=== PATIENT | male | born 1955 | race Caucasian/White ===

== ENCOUNTER → 2017-06-20 | Outpatient (CLI) | payer BC | END | disposition home or self-care (01) | LOC: LABWHC1 15:09 | PROVIDERS: ATTEND Otolaryngology | DX: J30.89 Other allergic rhinitis (principal) | CPT/HCPCS: 36415 ==

== ENCOUNTER 2019-01-01 17:38 | Observation (INO) | payer BC, MEDICARE, OTHER ==
[2019-01-01] MEDS ORDERED: SODIUM CHLORIDE 0.9% 1,000 ML IV STA (17:56)
[2019-01-01] MEDS ORDERED: SODIUM CHLORIDE 0.9% 500 ML 500 ML IV STA (17:56)
[2019-01-01 18:13] LABS: Basophils # (A) 0.1 k/uL (0-0.2); Basophils % (A) 1 %; Eosinophils # (A) 0.2 k/uL (0-0.7); Eosinophils % (A) 2 %; HCT 44.9 % (39.0-53.0); HGB 15.5 gm/dL (13.0-17.5); Lymphocytes # (A) 2.5 k/uL (1.0-4.8); Lymphocytes % (A) 28 %; MCH 30.9 pg (25.0-35.0); MCHC 34.5 g/dL (31.0-37.0); MCV 89.5 fL (80.0-100.0); Mean Platelet Volume 7.9; Monocytes # (A) 0.6 k/uL (0-1.0); Monocytes % (A) 6 %; Neutrophils # (A) 5.5 k/uL (1.3-7.7); Neutrophils % (A) 61 %; Platelet Count 247 k/uL (150-450); RBC 5.02 m/uL (4.30-5.90); RDW 13.3 % (11.5-15.5)
[2019-01-01 18:23] LABS: Albumin 4.5 g/dL (3.5-5.0); Calcium 9.6 mg/dL (8.4-10.2); Potassium 4.5 mmol/L (3.5-5.1); Total Bilirubin 0.6 mg/dL (0.2-1.3); Total Protein 7.6 g/dL (6.3-8.2)
[2019-01-01 18:25] LABS: INR 0.9 (<1.2); Partial Thromboplastin Time 23.9 sec (22.0-30.0); Prothrombin Time 10.1 sec (9.0-12.0)
--- NOTE | 2019-01-01 18:25 | ED ---
Arrhythmia/Palpitations HPI - General Chief Complaint: Arrhythmia/Palpitations Stated Complaint: Abnormal EKG Time Seen by Provider: 01/01/19 17:55 Source: patient, RN notes reviewed, old records reviewed Mode of arrival: wheelchair Limitations: no limitations - History of Present Illness Initial Comments: This is a 63-year-old male the ER for evaluation. Patient admits today for evaluation of left-sided chest pain left shoulder pain history of positive heart catheterization abnormal stress testing coming in for new change in EKG. Patient was sent in the ER by PCP for evaluation. Patient continued of pain. No source of breath no travel history no sick contacts, patient does take aspirin every other day -: days(s) Context: occurred during rest Associated Symptoms: chest pain, other (Left shoulder pain) - Related Data Home Medications Medication Instructions Recorded Confirmed Brimonidine Tartrate [Alphagan P 1 drops BOTH EYES BID 06/16/14 07/10/15 0.1% Ophth Soln] Dorzolamide HCl/Timolol Maleat 1 drop LEFT EYE BID 06/16/14 07/10/15 [Cosopt Eye Drops] Insulin Glargine [Lantus] 55 unit SQ DAILY 06/16/14 07/10/15 Latanoprost Ophth [Xalatan 0.005%] 1 drops BOTH EYES DAILY 06/16/14 07/10/15 metFORMIN HCL [Glucophage] 1,000 mg PO BID 06/16/14 07/10/15 Aspirin 81 mg PO DAILY 10/20/14 07/10/15 Cholecalciferol [Vitamin D3] 1,000 unit PO Q48H 10/20/14 07/10/15 Flaxseed [Flaxseed Oil] 1,000 mg PO BID 10/20/14 07/10/15 Losartan/Hydrochlorothiazide 1 each PO DAILY 07/10/15 07/10/15 [Hyzaar 100-12.5 Tablet] buPROPion SR [Wellbutrin Sr] 100 mg PO BID 07/10/15 07/10/15 Previous Rx's Medication Instructions Recorded Acetaminophen with Codeine 1 tab PO Q4H PRN #20 tab 07/10/15 [Tylenol w/codeine #3] Albuterol Sulfate [Proair Hfa] 1 - 2 puff INHALATION Q4H PRN #1 07/10/15 inhaler Levofloxacin [Levaquin] 750 mg PO DAILY #7 tab 07/10/15 Allergies Allergy/AdvReac Type Severity Reaction Status Date / Time No Known Allergies Allergy Verified 01/01/19 17:41 Review of Systems ROS Statement: Those systems with pertinent positive or pertinent negative responses have been documented in the HPI. ROS Other: All systems not noted in ROS Statement are negative. Past Medical History Past Medical History: Diabetes Mellitus, Eye Disorder, GERD/Reflux, Hypertension, Sleep Apnea/CPAP/BIPAP Additional Past Medical History / Comment(s): glaucoma, past hx. colon polyps History of Any Multi-Drug Resistant Organisms: None Reported Past Surgical History: Heart Catheterization Additional Past Surgical History / Comment(s): colonoscopies, vocal cord polyp removed, pilonidal cyst removed Past Anesthesia/Blood Transfusion Reactions: No Reported Reaction Past Psychological History: No Psychological Hx Reported Smoking Status: Former smoker Past Alcohol Use History: Occasional Past Drug Use History: None Reported General Exam Limitations: no limitations General appearance: alert, in no apparent distress Head exam: Present: atraumatic, normocephalic, normal inspection Eye exam: Present: normal appearance, PERRL, EOMI. Absent: scleral icterus, conjunctival injection, periorbital swelling ENT exam: Present: normal exam, mucous membranes moist Neck exam: Present: normal inspection. Absent: tenderness, meningismus, lymphad enopathy Respiratory exam: Present: normal lung sounds bilaterally. Absent: respiratory distress, wheezes, rales, rhonchi, stridor Cardiovascular Exam: Present: regular rate, normal rhythm, normal heart sounds. Absent: systolic murmur, diastolic murmur, rubs, gallop, clicks GI/Abdominal exam: Present: soft, normal bowel sounds. Absent: distended, tenderness, guarding, rebound, rigid Extremities exam: Present: normal inspection, full ROM, normal capillary refill. Absent: tenderness, pedal edema, joint swelling, calf tenderness Back exam: Present: normal inspection Neurological exam: Present: alert, oriented X3, CN II-XII intact Psychiatric exam: Present: normal affect, normal mood Skin exam: Present: warm, dry, intact, normal color. Absent: rash Course Vital Signs 01/01/19 17:39 Temperature 98.2 F Pulse Rate 76 Respiratory 20 Rate Blood Pressure 149/90 O2 Sat by Pulse 98 Oximetry - Reevaluation(s) Reevaluation #1: 01/01/19 18:38 Medical record outpatient EKG reviewed Reevaluation #2: 01/01/19 18:38 Patient's left shoulder pain left chest pain EKG Findings - EKG Comments: EKG Findings:: EKG shows sinus rhythm rate of 70, IL 150, QRS 150, QTc 487 Medical Decision Making - Medical Decision Making 63 male the ER for evaluation. Patient left-sided shoulder pain with history of heart disease, will not for cardiac observation - Lab Data Result diagrams: 01/01/19 17:53 01/01/19 17:53 Lab Results 01/01/19 01/01/19 01/01/19 Range/Units 17:53 17:53 17:53 WBC 9.0 (3.8-10.6) k/uL RBC 5.02 (4.30-5.90) m/uL Hgb 15.5 (13.0-17.5) gm/dL Hct 44.9 (39.0-53.0) % MCV 89.5 (80.0-100.0) fL MCH 30.9 (25.0-35.0) pg MCHC 34.5 (31.0-37.0) g/dL RDW 13.3 (11.5-15.5) % Plt Count 247 (150-450) k/uL Neutrophils % 61 % Lymphocytes % 28 % Monocytes % 6 % Eosinophils % 2 % Basophils % 1 % Neutrophils # 5.5 (1.3-7.7) k/uL Lymphocytes # 2.5 (1.0-4.8) k/uL Monocytes # 0.6 (0-1.0) k/uL Eosinophils # 0.2 (0-0.7) k/uL Basophils # 0.1 (0-0.2) k/uL PT 10.1 (9.0-12.0) sec INR 0.9 (<1.2) APTT 23.9 (22.0-30.0) sec Sodium 139 (137-145) mmol/L Potassium 4.5 (3.5-5.1) mmol/L Chloride 102 (98-107) mmol/L Carbon Dioxide 27 (22-30) mmol/L Anion Gap 10 mmol/L BUN 28 H (9-20) mg/dL Creatinine 1.20 (0.66-1.25) mg/dL Est GFR (CKD-EPI)AfAm 73 (>60 ml/min/1.73 sqM) Est GFR (CKD-EPI)NonAf 63 (>60 ml/min/1.73 sqM) Glucose 150 H (74-99) mg/dL Calcium 9.6 (8.4-10.2) mg/dL Magnesium 2.0 (1.6-2.3) mg/dL Total Bilirubin 0.6 (0.2-1.3) mg/dL AST 28 (17-59) U/L ALT 22 (21-72) U/L Alkaline Phosphatase 58 (38-126) U/L Total Protein 7.6 (6.3-8.2) g/dL Albumin 4.5 (3.5-5.0) g/dL Lipase 473 H (23-300) U/L - Radiology Data Radiology results: report reviewed (Chest x-rays negative for acute disease), image reviewed Disposition Clinical Impression: Chest pain Disposition: HOME SELF-CARE Condition: Undetermined Is patient prescribed a controlled substance at d/c from ED?: No Referrals: Lazaro Holley MD [Primary Care Provider] - 1-2 days
[2019-01-01] MEDS ORDERED: HEPARIN SODIUM,PORCINE 5,000 UNIT/ML 1 ML VIAL IV ONE (18:35)
[2019-01-01] MEDS ORDERED: NITROGLYCERIN SL TABS 0.4 MG TAB SUBLINGUAL PRN (18:35)
[2019-01-01] MEDS ORDERED: HEPARIN SODIUM,PORCINE 5,000 UNIT/ML 1 ML VIAL IV PRN (18:35)
[2019-01-01] MEDS ORDERED: MORPHINE SULFATE 4 MG/ML SYRINGE IV PRN (18:35)
--- NOTE | 2019-01-01 18:41 | XR ---
EXAMINATION TYPE: XR chest 2V DATE OF EXAM: 01/01/2019 COMPARISON: 07/10/2015 HISTORY: Chest pain TECHNIQUE: Frontal and lateral views of the chest are obtained. FINDINGS: Heart and mediastinum are normal. Lungs are clear. Diaphragm is normal. There is spurring in the thoracic spine. There are chest leads. IMPRESSION: No active cardiopulmonary disease. No change.
[2019-01-01] MEDS ORDERED: HEPARIN SOD,PORK IN 0.45% NACL 25,000 UNIT in 0.45% NACL 1 250ML.BAG IV SCH (18:45)
--- NOTE | 2019-01-01 21:53 | P.HPIM ---
History of Present Illness H&P Date: 01/01/19 Patient is a 63-year-old male with a PMH of hypertension, hyperlipidemia, and diabetes mellitus who presented to the ED with complaints of left shoulder pain. The patient notes that over the past few weeks, he has developed an aching pain in the left shoulder, brought on by activity as well as occasionally at rest. He is unable to quantify the exact intensity of the pain as it varies significantly, and denied any associated symptoms. He denied shortness of breath, nausea, vomiting, or diaphoresis. He notes excellent exercise tolerance and is able to climb stairs and go up hills without difficulty. The patient previously had an abnormal stress test and subsequent cardiac catheterization in 2014 which revealed a 40-50% stenosis of the mid right coronary artery. The patient otherwise denied fever, chills, cough, headaches, dizziness, or diarrhea. He underwent an extensive evaluation in the ED with troponin less than 0.012, BNP 61, sodium 139, potassium 4.5, WBC count 9, hemoglobin 15, place 247, BUN 28, and creatinine 1.20. Patient's EKG revealed a normal sinus rhythm at 78 bpm with a right bundle sil block, also seen previously on EKG from 2016. Patient was admitted to the medicine service for cardiology evaluation. Review of Systems Pertinent positives and negatives as discussed in HPI, a complete review of systems was performed and all other systems are negative. Past Medical History Past Medical History: Diabetes Mellitus, Eye Disorder, GERD/Reflux, Hypertension, Sleep Apnea/CPAP/BIPAP Additional Past Medical History / Comment(s): glaucoma, past hx. colon polyps History of Any Multi-Drug Resistant Organisms: None Reported Past Surgical History: Heart Catheterization Additional Past Surgical History / Comment(s): colonoscopies, vocal cord polyp removed, pilonidal cyst removed Past Anesthesia/Blood Transfusion Reactions: No Reported Reaction Past Psychological History: No Psychological Hx Reported Smoking Status: Former smoker Past Alcohol Use History: Occasional Past Drug Use History: None Reported Medications and Allergies Home Medications Medication Instructions Recorded Confirmed Type Brimonidine Tartrate [Alphagan P 1 drops LEFT EYE BID 06/16/14 01/01/19 History 0.1% Ophth Soln] Dorzolamide HCl/Timolol Maleat 1 drop LEFT EYE BID 06/16/14 07/10/15 History [Cosopt Eye Drops] Latanoprost Ophth [Xalatan 0.005%] 1 drops LEFT EYE DAILY 06/16/14 01/01/19 History Aspirin 81 mg PO Q48H 10/20/14 01/01/19 History Cholecalciferol [Vitamin D3] 2,000 unit PO DAILY 10/20/14 01/01/19 History Flaxseed [Flaxseed Oil] 1,000 mg PO DAILY 10/20/14 01/01/19 History Losartan/Hydrochlorothiazide 1 tab PO DAILY 07/10/15 01/01/19 History [Hyzaar 100-12.5 Tablet] Ascorbic Acid [Vitamin C] 500 mg PO DAILY 01/01/19 01/01/19 History Calcium Carbonate [Calcium] 600 mg PO DAILY 01/01/19 01/01/19 History Cyanocobalamin (Vitamin B-12) 1,000 mcg PO DAILY 01/01/19 01/01/19 History [Vitamin B-12] Multivitamins, Thera [Multivitamin 1 tab PO DAILY 01/01/19 01/01/19 History (formulary)] Turmeric Root Extract [Turmeric] 500 mg PO DAILY 01/01/19 01/01/19 History Allergies Allergy/AdvReac Type Severity Reaction Status Date / Time apple Allergy Unknown Verified 01/01/19 19:24 broccoli Allergy Unknown Verified 01/01/19 19:24 cat dander Allergy Unknown Verified 01/01/19 19:24 Milk Containing Products Allergy Unknown Verified 01/01/19 19:24 [Dairy] wheat Allergy Unknown Verified 01/01/19 19:24 codeine AdvReac AGITATION Verified 01/01/19 20:03 Physical Exam Vitals: Vital Signs Temp Pulse Resp BP Pulse Ox 01/01/19 20:13 81 16 144/88 97 01/01/19 17:39 98.2 F 76 20 149/90 98 Intake and Output 01/01/19 01/01/19 01/01/19 06:59 14:59 22:59 Other: Weight 103.873 kg General: non toxic, no distress, appears at stated age, normal weight Derm: no unusual rashes/lesions no unusual ecchymoses, warm, dry Head: atraumatic, normocephalic, symmetric Eyes: EOMI, no lid lag, anicteric sclera, pupils equal round reactive to light ENT: Nose and ears atraumatic, no thrush, no pharyngeal erythema Neck: No thyromegaly, no cervical lymphadenopathy, trachea midline, supple Mouth: no lip lesion, mucus membranes moist Cardiovascular: S1S2 reg, no murmur, positive posterior tibial pulse bilateral, no edema, capillary refill less than 2 seconds Lungs: CTA bilateral, no rhonchi, no rales , no accessory muscle use Abdominal: soft, nontender to palpation, no guarding, no appreciable organomegaly, normal bowel sounds Ext: Left shoulder with tenderness over multiple areas, normal range of motion, no gross muscle atrophy, muscle strength 5 out of 5 in all 4 extremities grossly, no contractures Neuro: CN II-XI grossly intact, light touch intact all 4 extremities, finger to nose within normal limits, Psych: Alert, oriented, appropriate affect Results CBC & Chem 7: 01/01/19 17:53 01/01/19 17:53 Labs: Abnormal Lab Results - Last 24 Hours (Table) 01/01/19 Range/Units 17:53 BUN 28 H (9-20) mg/dL Glucose 150 H (74-99) mg/dL Lipase 473 H (23-300) U/L Assessment and Plan Plan: Left shoulder pain, likely musculoskeletal in origin, though in light of multiple comorbidities, admitted for rule out ACS -Discontinue heparin infusion -Continue with aspirin and Lipitor -Cardiology consulted -Cardiac monitoring -Trend troponin Chronic conditions: Hypertension, hyperkalemia, diabetes mellitus (diet controlled) -Continue with home meds DVT prophylaxis -Heparin subq The patient is admitted with an anticipated less than 2 midnight stay for evaluation of L shoulder pain. CODE STATUS:Full Code Discussed with: Patient Anticipated discharge date: 01/02/[address]: Home A total of 30 minutes was spent on the care of this complex patient more than 50% of the time was spent in counseling and care coordination
[2019-01-01 22:14] VITALS: BMI 32.8
[2019-01-01 22:47] LABS: Glucose,Whole Blood 128 mg/dL (75-99)
[2019-01-01] MEDS: METOPROLOL TARTRATE 25 MG TAB PO SCH (22:54)
[2019-01-02] MEDS: BRIMONIDINE TARTRATE 0.2% DROPS 5 ML BTL LEFT EYE SCH ×2 (02:23→12:50)
[2019-01-02] MEDS: DORZOLAMIDE-TIMOLOL 2.23%/0.68 10ML BTL LEFT EYE SCH ×2 (02:24→12:50)
[2019-01-02 05:58] LABS: Mean Platelet Volume 8.5; Platelet Count 222 k/uL (150-450)
[2019-01-02 06:04] LABS: Cholesterol 132 mg/dL (<200); HDL Cholesterol 38 mg/dL (40-60); LDL Cholesterol,Calculated 62 mg/dL (0-99); Triglycerides 159 mg/dL (<150)
[2019-01-02 07:20] LABS: Glucose,Whole Blood 138 mg/dL (75-99)
[2019-01-02] MEDS: INSULIN ASPART (NovoLOG) 100 UNIT/ML VIAL SQ SCH ×2 (07:34→12:50)
[2019-01-02 08:32] VITALS: RESP 17; TEMP 97.5
[2019-01-02] MEDS ORDERED: DOBUTamine DRIP for NUC MED 500 MG in DEXTROSE/WATER 1 250ML.BAG IV ONE (08:48)
[2019-01-02] MEDS ORDERED: LATANOPROST 0.005% OPHTH DROPS 2.5 ML BTL LEFT EYE SCH (09:00)
[2019-01-02] MEDS ORDERED: ASPIRIN 325 MG TAB PO SCH (09:00)
[2019-01-02] MEDS ORDERED: LOSARTAN 50 MG TAB PO SCH (09:00)
[2019-01-02] MEDS ORDERED: ATORVASTATIN 80 MG TAB PO SCH (09:00)
[2019-01-02] MEDS ORDERED: LOSARTAN-HCTZ 50-12.5 MG 1 EACH TAB PO SCH (09:00)
[2019-01-02 11:25] VITALS: BP 166/98; PULSE 91
[2019-01-02] MEDS: METOPROLOL TARTRATE 25 MG TAB PO SCH (12:50)
--- NOTE | 2019-01-02 13:42 | ECHOS ---
STRESS ECHOCARDIOGRAM DATE OF SERVICE: 01/02/2019 INDICATIONS: Chest pain. MEDICATIONS: BASELINE HEART RATE: 60 BASELINE BLOOD PRESSURE: 125/50 MAXIMUM HEART RATE: 157 MAXIMUM BLOOD PRESSURE: 219/101 85% MPHR: 132 100% MPHR: 155 METS: 8 MAXIMUM STAGE REACHED: III TOTAL EXERCISE TIME: 6-1/2 minutes CLINICAL INFORMATION: Baseline EKG shows sinus rhythm with right bundle branch block. The patient exercised on Yunier protocol for a total of 6-1/2 minutes, achieving 8 METs, 100% of predicted maximal heart rate without chest pain or diagnostic ST-segment depression. Baseline echo shows normal left ventricular size, wall motion and systolic function. Endocardial visualization was enhanced by a contrast agent. Postexercise there is normal hyperdynamic response of all segments of myocardium noted. CONCLUSIONS: 1. Average exercise tolerance. 2. Inconclusive EKG part of the stress test due to baseline EKG abnormalities. 3. Negative stress echo. MMODL / IJN: [id number] /
--- NOTE | 2019-01-02 13:42 | P.DS ---
Providers Date of admission: 01/01/19 18:35 Expected date of discharge: 01/02/19 Attending physician: Tomas Mejia MD Consults: 01/01/19 18:35 Consult Physician Urgent Consulting Provider: Mallika Sánchez Consult Reason/Comments: cp Do you want consulting provider notified?: Yes Primary care physician: [facility] Course: 63-year-old male with a PMH of hypertension, hyperlipidemia, and diabetes mellitus who presented to the ED with complaints of left shoulder pain. The patient notes that over the past few weeks, he has developed an aching pain in the left shoulder, brought on by activity as well as occasionally at rest. The pain varies significantly in intensity. No associated symptoms. No shortness of breath, nausea, vomiting, or diaphoresis. He notes excellent exercise tolerance and is able to climb stairs and go up hills without difficulty. No fever, chills, cough, headaches, dizziness, or diarrhea. The patient previously had an abnormal stress test and subsequent cardiac catheterization in 2014 which revealed a 40-50% stenosis of the mid right coronary artery. He underwent an extensive evaluation in the ED with troponin less than 0.012, BNP 61, sodium 139, potassium 4.5, WBC count 9, hemoglobin 15, place 247, BUN 28, and creatinine 1.20. Patient's EKG revealed a normal sinus rhythm at 78 bpm with a right bundle sil block, also seen previously on EKG from 2016. He was admitted to observation, kept on telemetry. Troponin was trended and it remained negative. Telemetry did not show any changes throughout stay observation. Today he had a dobutamine stress echo and that came back negative for any stress-induced ischemia. He was evaluated by cardiology who cleared him for discharge. He was advised that this pain is most likely musculoskeletal. He will be discharged home in stable condition. Patient Condition at Discharge: Undetermined Plan - Discharge Summary Discharge Rx Participant: No New Discharge Prescriptions: Continue Latanoprost Ophth [Xalatan 0.005%] 1 drops LEFT EYE DAILY Dorzolamide HCl/Timolol Maleat [Cosopt Eye Drops] 1 drop LEFT EYE BID Brimonidine Tartrate [Alphagan P 0.1% Ophth Soln] 1 drops LEFT EYE BID Cholecalciferol [Vitamin D3 (25 Mcg = 1000 Iu)] 2,000 unit PO DAILY Aspirin 81 mg PO Q48H Flaxseed [Flaxseed Oil] 1,000 mg PO DAILY Losartan/Hydrochlorothiazide [Hyzaar 100-12.5 Tablet] 1 tab PO DAILY Multivitamins, Thera [Multivitamin (formulary)] 1 tab PO DAILY Turmeric Root Extract [Turmeric] 500 mg PO DAILY Cyanocobalamin (Vitamin B-12) [Vitamin B-12] 1,000 mcg PO DAILY Ascorbic Acid [Vitamin C] 500 mg PO DAILY Calcium Carbonate [Calcium] 600 mg PO DAILY Discharge Medication List Brimonidine Tartrate [Alphagan P 0.1% Ophth Soln] 1 drops LEFT EYE BID 06/16/14 [History] Dorzolamide HCl/Timolol Maleat [Cosopt Eye Drops] 1 drop LEFT EYE BID 06/16/14 [History] Latanoprost Ophth [Xalatan 0.005%] 1 drops LEFT EYE DAILY 06/16/14 [History] Aspirin 81 mg PO Q48H 10/20/14 [History] Cholecalciferol [Vitamin D3 (25 Mcg = 1000 Iu)] 2,000 unit PO DAILY 10/20/14 [History] Flaxseed [Flaxseed Oil] 1,000 mg PO DAILY 10/20/14 [History] Losartan/Hydrochlorothiazide [Hyzaar 100-12.5 Tablet] 1 tab PO DAILY 07/10/15 [History] Ascorbic Acid [Vitamin C] 500 mg PO DAILY 01/01/19 [History] Calcium Carbonate [Calcium] 600 mg PO DAILY 01/01/19 [History] Cyanocobalamin (Vitamin B-12) [Vitamin B-12] 1,000 mcg PO DAILY 01/01/19 [History] Multivitamins, Thera [Multivitamin (formulary)] 1 tab PO DAILY 01/01/19 [History] Turmeric Root Extract [Turmeric] 500 mg PO DAILY 01/01/19 [History] Follow up Appointment(s)/Referral(s): Lazaro Holley MD [Primary Care Provider] - 1-2 days
--- NOTE | 2019-01-02 14:38 | CONS ---
CONSULTATION CHIEF COMPLAINT: Left shoulder pain. Amor is a 63-year-old gentleman with history of mild coronary artery disease, hypertension, who presented to hospital because of left shoulder pain. 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 It is unassociated with diaphoresis, shortness of breath without clear-cut relieving or exacerbating factors. Sometimes it got worse with movements of the left shoulder. The patient had a cardiac catheterization in 2014 that revealed a lesion in the mid right coronary artery that we have managed with optimal medical therapy. He did not have any further testing since that time. An EKG on this admission revealed right bundle branch block, but his right bundle branch block is chronic and stable. He has had 3 sets of cardiac enzymes that were all within normal limits. Given his unexplained shoulder pain, I advised the patient to undergo a stress test for further evaluation. Understanding all the issues, he wishes to proceed with it today. PAST MEDICAL HISTORY: Significant for sleep apnea, diabetes, GERD, hypertension, CAD. PAST SURGICAL HISTORY: Significant for cardiac catheterization and vocal cord polyp removal. SOCIAL HISTORY: Negative for smoking. There is no history of EtOH abuse or drug abuse. REVIEW OF SYSTEMS: HEENT is unremarkable. CARDIAC: As described above. RESPIRATORY: Negative. GI: Negative. GENITOURINARY: Negative. ALLERGY/IMMUNOLOGY: Negative. SKIN: Negative. MUSCULOSKELETAL: Significant for left shoulder pain. PSYCHOSOCIAL: Negative. DERM: Negative. CONSTITUTIONAL: Negative. ONCOLOGICAL: Negative. Rest of the system review is not relevant. CURRENT MEDICATIONS: Current medications include Xalatan, aspirin, flaxseed, Hyzaar, vitamin C, calcium, B12. ALLERGIES: Allergic to APPLE, BROCCOLI, WHEAT, and CODEINE. PHYSICAL EXAMINATION: On exam, he s comfortable at rest. Blood pressure is elevated at 150/90, respiratory rate is 18. Chest exam reveals good air entry bilaterally. Heart exam reveals first and second heart sounds. No gallop. Has a systolic murmur at the apex. Abdomen is soft. Examination of the extremities did not reveal any edema. Peripheral pulses are felt. 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 LABS: Labs show that the hemoglobin is 15.5, BUN is 28, creatinine is 1.2. Three sets of troponins are . LDL cholesterol is 62. ASSESSMENT: 1. Atypical chest pain. 2. Uncontrolled hypertension. 3. Known coronary artery disease. PLAN: Myocardial infarction is ruled out. I am going to add amlodipine 5 mg daily for more optimal blood pressure control. I advised him to undergo a stress echo. If this is negative, he can be discharged home. If this is abnormal, we will work him up further. MMODL / IJN: [id number] /
== END 2019-01-02 13:07 ==
LOC: EC 17:38 → 1SOBS 18:35
PROVIDERS: ADMIT Internal Medicine; ATTEND Internal Medicine
DX: R07.89 Other chest pain (principal); M25.512 Pain in left shoulder; R94.31 Abnormal electrocardiogram [ECG] [EKG]; I25.10 Atherosclerotic heart disease of native coronary artery without angina pectoris; I45.10 Unspecified right bundle-branch block; R00.2 Palpitations; K21.9 Gastro-esophageal reflux disease without esophagitis; I10 Essential (primary) hypertension; E11.9 Type 2 diabetes mellitus without complications; E78.5 Hyperlipidemia, unspecified; E87.5 Hyperkalemia; H40.9 Unspecified glaucoma; G47.30 Sleep apnea, unspecified; Z99.89 Dependence on other enabling machines and devices; Z79.899 Other long term (current) drug therapy; Z91.011 Allergy to milk products; Z88.5 Allergy status to narcotic agent; Z91.018 Allergy to other foods; Z91.048 Other nonmedicinal substance allergy status; Z86.010 Personal history of colon polyps; Z86.018 Personal history of other benign neoplasm; Z87.891 Personal history of nicotine dependence
CPT/HCPCS: 96366 ×3; 96376; 96361; 96365; 99285; 36415; 93005; 83880; 80061; 80053; 83690; 83735; 84484 ×2; 85025; 85049; 85610; 85730; 71046; G0378 ×2; C8930; J1644 ×2; 93351

== ENCOUNTER 2019-07-21 19:17 | Emergency (ER) | payer MEDICARE ==
[2019-07-21 20:18] VITALS: RESP 18; TEMP 99.8
--- NOTE | 2019-07-21 20:41 | XR ---
EXAMINATION TYPE: XR chest 2V DATE OF EXAM: 07/21/2019 COMPARISON: 01/01/2019 HISTORY: Chest pain. Cough. Fever. TECHNIQUE: FINDINGS: Heart and mediastinum are normal. Lungs are clear of infiltrate. Costophrenic angles are cl ear. There are no hilar masses. IMPRESSION: No active cardiopulmonary disease. Normal heart. No change.
--- NOTE | 2019-07-21 21:18 | ED ---
URI HPI - General Chief Complaint: Upper Respiratory Infection Stated Complaint: SOB, cough Time Seen by Provider: 07/21/19 21:00 Source: patient Mode of arrival: ambulatory Limitations: no limitations - History of Present Illness MD Complaint: fever, cough, nasal congestion Onset/Timin -: days(s) Severity: moderate Consistency: constant Improves With: nothing Worsens With: nothing Context: recent travel, animal exposure Associated Symptoms: fever, nasal congestion, cough Treatments Prior to Arrival: none - Related Data Home Medications Medication Instructions Recorded Confirmed Dorzolamide HCl/Timolol Maleat 1 drop LEFT EYE BID 06/16/14 07/29/19 [Cosopt Eye Drops] Latanoprost Ophth [Xalatan 0.005%] 1 drops LEFT EYE HS 06/16/14 07/29/19 Aspirin 81 mg PO Q48H 10/20/14 07/29/19 Cholecalciferol [Vitamin D3 (25 2,000 unit PO DAILY 10/20/14 07/29/19 Mcg = 1000 Iu)] Flaxseed [Flaxseed Oil] 1,000 mg PO DAILY 10/20/14 07/29/19 Ascorbic Acid [Vitamin C] 500 mg PO DAILY 01/01/19 07/29/19 Calcium Carbonate [Calcium] 600 mg PO DAILY 01/01/19 07/29/19 Cyanocobalamin (Vitamin B-12) 1,000 mcg PO DAILY 01/01/19 07/29/19 [Vitamin B-12] Multivitamins, Thera [Multivitamin 1 tab PO DAILY 01/01/19 07/29/19 (formulary)] Turmeric Root Extract [Turmeric] 500 mg PO DAILY 01/01/19 07/29/19 Albuterol Inhaler [Ventolin Hfa 1 - 2 puff INHALATION RT-Q6H PRN 07/29/19 07/29/19 Inhaler] Brimonidine Tartrate [Alphagan P 1 drops LEFT EYE BID 07/29/19 07/29/19 0.2% Ophth Soln] Hydrochlorothiazide 12.5mg Tab 12.5 mg PO DAILY 07/29/19 07/29/19 L.acidoph,Paracasei, B.lactis 1 cap PO DAILY 07/29/19 07/29/19 [Probiotic] Losartan Potassium 100 mg PO DAILY 07/29/19 07/29/19 Magnesium Oxide [Mag-Ox] 250 mg PO DAILY 07/29/19 07/29/19 Previous Rx's Medication Instructions Recorded Beclomethasone Dip 80 Mcg/Puff 1 puff INHALATION BID #1 puff 07/30/19 [Qvar] Cefuroxime Axetil [Ceftin] 500 mg PO BID #10 tab 07/30/19 Tiotropium 18 Mcg/Puff [Spiriva] 1 puff INHALATION DAILY #1 inhaler 07/30/19 predniSONE 0 mg PO DIRECTED #10 tab 07/30/19 Allergies Allergy/AdvReac Type Severity Reaction Status Date / Time apple Allergy Unknown Verified 07/29/19 21:43 broccoli Allergy Unknown Verified 07/29/19 21:43 cat dander Allergy Unknown Verified 07/29/19 21:43 Milk Containing Products Allergy Unknown Verified 07/29/19 21:43 [Dairy] wheat Allergy Unknown Verified 07/29/19 21:43 codeine AdvReac AGITATION Verified 07/29/19 21:43 Review of Systems ROS Statement: Those systems with pertinent positive or pertinent negative responses have been documented in the HPI. ROS Other: All systems not noted in ROS Statement are negative. Constitutional: Reports: fever. Denies: chills Respiratory: Reports: cough. Denies: dyspnea, wheezes Cardiovascular: Denies: chest pain, palpitations, edema, syncope Gastrointestinal: Denies: abdominal pain, nausea, vomiting Genitourinary: Denies: dysuria, hematuria Musculoskeletal: Denies: back pain Skin: Reports: rash Neurological: Denies: headache, weakness, numbness Past Medical History Past Medical History: COPD, Diabetes Mellitus, Eye Disorder, GERD/Reflux, Hypertension, Pneumonia, Sleep Apnea/CPAP/BIPAP Additional Past Medical History / Comment(s): glaucoma, past hx. colon polyps, History of Any Multi-Drug Resistant Organisms: None Reported Past Surgical History: Heart Catheterization Additional Past Surgical History / Comment(s): colonoscopies, vocal cord polyp removed, pilonidal cyst removed, Past Anesthesia/Blood Transfusion Reactions: No Reported Reaction Past Psychological History: No Psychological Hx Reported Smoking Status: Former smoker Past Alcohol Use History: Occasional Past Drug Use History: None Reported General Exam Limitations: no limitations General appearance: alert, in no apparent distress Head exam: Present: atraumatic, normocephalic Eye exam: Present: normal appearance. Absent: scleral icterus, conjunctival injection ENT exam: Present: normal oropharynx Neck exam: Present: normal inspection Respiratory exam: Present: normal lung sounds bilaterally. Absent: respiratory distress, wheezes, rales, rhonchi, stridor Cardiovascular Exam: Present: regular rate, normal rhythm, normal heart sounds. Absent: systolic murmur, diastolic murmur, rubs, gallop GI/Abdominal exam: Present: soft. Absent: distended, tenderness, guarding, rebound, rigid, mass Extremities exam: Present: normal inspection, normal capillary refill. Absent: pedal edema, calf tenderness Back exam: Present: normal inspection. Absent: CVA tenderness (R), CVA tenderness (L) Skin exam: Present: warm, dry, intact, normal color. Absent: rash Course Vital Signs 07/21/19 07/21/19 20:14 22:01 Temperature 99.8 F H Pulse Rate 99 103 H Respiratory 18 18 Rate Blood Pressure 192/98 140/97 O2 Sat by Pulse 96 96 Oximetry Medical Decision Making - Medical Decision Making Patient is 64-year-old man presenting for fever, cough, who does have concerning travel history. We did discuss concerns about coded 19 exposure and I did recommend that he isolate based on the exposure and the symptoms. Discussed that as of the current testing standards he did not not have travel outside the country or exposure to any known travel or to the source countries, and we do not have the test and house. Discussed return parameters. - Lab Data Lab Results 07/21/19 07/21/19 Range/Units 20:17 20:17 Influenza Type A RNA Not Detected (Not Detectd) Influenza Type B (PCR) Not Detected (Not Detectd) Virus Source See Below Viral Test See Below Virus Analysis Interp See Below Disposition Clinical Impression: Acute upper respiratory infection Disposition: HOME SELF-CARE Condition: Good Instructions (If sedation given, give patient instructions): Upper Respiratory Infection (ED) Is patient prescribed a controlled substance at d/c from ED?: No Referrals: Lazaro Holley MD [Primary Care Provider] - 1-2 days
[2019-07-21 22:03] VITALS: BP 140/97; PULSE 103
== END 2019-07-21 22:02 | disposition home or self-care (01) ==
LOC: EC 19:17
DX: J06.9 Acute upper respiratory infection, unspecified (principal); I10 Essential (primary) hypertension; H40.9 Unspecified glaucoma; G47.30 Sleep apnea, unspecified; Z87.891 Personal history of nicotine dependence; Z88.5 Allergy status to narcotic agent; Z91.011 Allergy to milk products; Z91.018 Allergy to other foods; Z91.048 Other nonmedicinal substance allergy status; Z79.82 Long term (current) use of aspirin; Z79.899 Other long term (current) drug therapy; Z87.01 Personal history of pneumonia (recurrent); Z87.09 Personal history of other diseases of the respiratory system; Z99.89 Dependence on other enabling machines and devices
CPT/HCPCS: 71046; 87252; 87498; 87502; 87529; 87634; 87798; 99285

== ENCOUNTER 2019-07-29 21:29 | Inpatient (IN) | payer MEDICARE ==
--- NOTE | 2019-07-29 21:50 | ED ---
General Adult HPI - General Stated complaint: + covid 19 Time Seen by Provider: 07/29/19 21:44 - History of Present Illness Initial comments: Dictation was produced using [employer] dictation software. please excuse any grammatical, word or spelling errors. Chief Complaint: 64-year-old male with known positive Covid 19 result presents with shortness of breath. History of Present Illness: he is 64-year-old male he was a recent travel to [facility] approximately 10 days ago. Approximately 8 days ago patient was seen in the emergency department where he was tested for Covid 19. Patient's result was positive. Since being recently fact that he developed some shortness of breath. He had fevers that lingered for approximately 2-3 days and then went away. Patient states he develop worsening cough and shortness of breath. He called his primary care doctor and was told to come to the emergency department. Patient is allegedly the first known case of: 19 in the [facility]. He reports that his symptoms are much more improved despite the coughing. The ROS documented in this emergency department record has been reviewed and confirmed by me. Those systems with pertinent positive or negative responses have been documented in the HPI. All other systems are other negative and/or noncontributory. PHYSICAL EXAM: General Impression: Alert and oriented x3, not in acute distress HEENT: Normocephalic atraumatic, extra-ocular movements intact, pupils equal and reactive to light bilaterally, mucous membranes moist, no oropharyngeal erythema Cardiovascular: Heart regular rate and rhythm, S1&S2 audible, no murmurs, rubs or gallops Abdomen: Bowel sounds present, abdomen soft, non-tender, non-distended, no organomegaly Musculoskeletal: Pulses present and equal in all extremities, no peripheral edema Motor: no focal deficits noted Neurological: CN II-XII grossly intact, no focal motor or sensory deficits noted Skin: Intact with no visualized rashes Psych: Normal affect and mood ED course: Serial male presents with shortness of breath and worsening cough. Patient is known Covid 19 positive patient. Patient had tested positive approximately 8 days ago. He has been symptomatic for approximately 12 days. Laboratory evaluation obtained. CBC, his blood gas and metabolic panel is unremarkable. Chest x-ray was obtained showing bilateral mild lower lobe pneumonia that is new compared to x-ray from 8 days ago. Basically secondary viral pneumonia however there is some concern that perhaps this is a bacterial pneumonia. Patient is started on Rocephin and azithromycin. Discussed patient case with Dr. Desai who is willing to accept patients care. He requests that pulmonology and infectious disease be consulted. - Related Data Home Medications Medication Instructions Recorded Confirmed Dorzolamide HCl/Timolol Maleat 1 drop LEFT EYE BID 06/16/14 07/29/19 [Cosopt Eye Drops] Latanoprost Ophth [Xalatan 0.005%] 1 drops LEFT EYE HS 06/16/14 07/29/19 Aspirin 81 mg PO Q48H 10/20/14 07/29/19 Cholecalciferol [Vitamin D3 (25 2,000 unit PO DAILY 10/20/14 07/29/19 Mcg = 1000 Iu)] Flaxseed [Flaxseed Oil] 1,000 mg PO DAILY 10/20/14 07/29/19 Ascorbic Acid [Vitamin C] 500 mg PO DAILY 01/01/19 07/29/19 Calcium Carbonate [Calcium] 600 mg PO DAILY 01/01/19 07/29/19 Cyanocobalamin (Vitamin B-12) 1,000 mcg PO DAILY 01/01/19 07/29/19 [Vitamin B-12] Multivitamins, Thera [Multivitamin 1 tab PO DAILY 01/01/19 07/29/19 (formulary)] Turmeric Root Extract [Turmeric] 500 mg PO DAILY 01/01/19 07/29/19 Albuterol Inhaler [Ventolin Hfa 1 - 2 puff INHALATION RT-Q6H PRN 07/29/19 07/29/19 Inhaler] Brimonidine Tartrate [Alphagan P 1 drops LEFT EYE BID 07/29/19 07/29/19 0.2% Ophth Soln] Hydrochlorothiazide 12.5mg Tab 12.5 mg PO DAILY 07/29/19 07/29/19 L.acidoph,Paracasei, B.lactis 1 cap PO DAILY 07/29/19 07/29/19 [Probiotic] Losartan Potassium 100 mg PO DAILY 07/29/19 07/29/19 Magnesium Oxide [Mag-Ox] 250 mg PO DAILY 07/29/19 07/29/19 Allergies Allergy/AdvReac Type Severity Reaction Status Date / Time apple Allergy Unknown Verified 07/29/19 21:43 broccoli Allergy Unknown Verified 07/29/19 21:43 cat dander Allergy Unknown Verified 07/29/19 21:43 Milk Containing Products Allergy Unknown Verified 07/29/19 21:43 [Dairy] wheat Allergy Unknown Verified 07/29/19 21:43 codeine AdvReac AGITATION Verified 07/29/19 21:43 Review of Systems ROS Statement: Those systems with pertinent positive or pertinent negative responses have been documented in the HPI. ROS Other: All systems not noted in ROS Statement are negative. Past Medical History Past Medical History: COPD, Diabetes Mellitus, Eye Disorder, GERD/Reflux, Hypertension, Pneumonia, Sleep Apnea/CPAP/BIPAP Additional Past Medical History / Comment(s): glaucoma, past hx. colon polyps, History of Any Multi-Drug Resistant Organisms: None Reported Past Surgical History: Heart Catheterization Additional Past Surgical History / Comment(s): colonoscopies, vocal cord polyp removed, pilonidal cyst removed, Past Anesthesia/Blood Transfusion Reactions: No Reported Reaction Past Psychological History: No Psychological Hx Reported Smoking Status: Former smoker Past Alcohol Use History: Occasional Past Drug Use History: None Reported Course Vital Signs 07/29/19 07/29/19 07/29/19 21:54 22:48 22:49 Temperature 100.7 F H Pulse Rate 112 H 87 Respiratory 22 21 23 Rate Blood Pressure 176/86 165/88 O2 Sat by Pulse 97 96 Oximetry Medical Decision Making - Lab Data Result diagrams: 07/29/19 21:54 07/29/19 21:54 Lab Results 07/29/19 07/29/19 07/29/19 Range/Units 21:54 21:54 21:54 WBC 6.3 (3.8-10.6) k/uL RBC 4.45 (4.30-5.90) m/uL Hgb 13.0 (13.0-17.5) gm/dL Hct 38.3 L (39.0-53.0) % MCV 86.1 (80.0-100.0) fL MCH 29.2 (25.0-35.0) pg MCHC 34.0 (31.0-37.0) g/dL RDW 12.8 (11.5-15.5) % Plt Count 238 (150-450) k/uL Neutrophils % 65 % Lymphocytes % 24 % Monocytes % 8 % Eosinophils % 1 % Basophils % 1 % Neutrophils # 4.1 (1.3-7.7) k/uL Lymphocytes # 1.5 (1.0-4.8) k/uL Monocytes # 0.5 (0-1.0) k/uL Eosinophils # 0.1 (0-0.7) k/uL Basophils # 0.0 (0-0.2) k/uL VBG pH (7.31-7.41) VBG pCO2 (37-51) mmHg VBG HCO3 (24-28) mmol/L Sodium 135 L (137-145) mmol/L Potassium 4.2 (3.5-5.1) mmol/L Chloride 99 (98-107) mmol/L Carbon Dioxide 29 (22-30) mmol/L Anion Gap 7 mmol/L BUN 20 (9-20) mg/dL Creatinine 1.05 (0.66-1.25) mg/dL Est GFR (CKD-EPI)AfAm 86 (>60 ml/min/1.73 sqM) Est GFR (CKD-EPI)NonAf 74 (>60 ml/min/1.73 sqM) Glucose 128 H (74-99) mg/dL Plasma Lactic Acid Fidencio 0.8 (0.7-2.0) mmol/L Calcium 8.8 (8.4-10.2) mg/dL Magnesium 1.8 (1.6-2.3) mg/dL 07/29/19 Range/Units 21:54 WBC (3.8-10.6) k/uL RBC (4.30-5.90) m/uL Hgb (13.0-17.5) gm/dL Hct (39.0-53.0) % MCV (80.0-100.0) fL MCH (25.0-35.0) pg MCHC (31.0-37.0) g/dL RDW (11.5-15.5) % Plt Count (150-450) k/uL Neutrophils % % Lymphocytes % % Monocytes % % Eosinophils % % Basophils % % Neutrophils # (1.3-7.7) k/uL Lymphocytes # (1.0-4.8) k/uL Monocytes # (0-1.0) k/uL Eosinophils # (0-0.7) k/uL Basophils # (0-0.2) k/uL VBG pH 7.47 H (7.31-7.41) VBG pCO2 39 (37-51) mmHg VBG HCO3 28 (24-28) mmol/L Sodium (137-145) mmol/L Potassium (3.5-5.1) mmol/L Chloride (98-107) mmol/L Carbon Dioxide (22-30) mmol/L Anion Gap mmol/L BUN (9-20) mg/dL Creatinine (0.66-1.25) mg/dL Est GFR (CKD-EPI)AfAm (>60 ml/min/1.73 sqM) Est GFR (CKD-EPI)NonAf (>60 ml/min/1.73 sqM) Glucose (74-99) mg/dL Plasma Lactic Acid Fidencio (0.7-2.0) mmol/L Calcium (8.4-10.2) mg/dL Magnesium (1.6-2.3) mg/dL Disposition Clinical Impression: Respiratory failure Disposition: ADMITTED IP TO THIS HOSP Condition: Fair Referrals: Lazaro Holley MD [Primary Care Provider] - 1-2 days Decision Time: 23:20
[2019-07-29 22:13] LABS: VBG PH 7.47 (7.31-7.41)
[2019-07-29 22:14] LABS: Basophils % (A) 1 %; Eosinophils # (A) 0.1 k/uL (0-0.7); Eosinophils % (A) 1 %; HCT 38.3 % (39.0-53.0); Lymphocytes # (A) 1.5 k/uL (1.0-4.8); Lymphocytes % (A) 24 %; MCH 29.2 pg (25.0-35.0); MCV 86.1 fL (80.0-100.0); Mean Platelet Volume 8.7; Monocytes # (A) 0.5 k/uL (0-1.0); Monocytes % (A) 8 %; Neutrophils # (A) 4.1 k/uL (1.3-7.7); Neutrophils % (A) 65 %; Platelet Count 238 k/uL (150-450); RBC 4.45 m/uL (4.30-5.90); RDW 12.8 % (11.5-15.5); WBC 6.3 k/uL (3.8-10.6)
[2019-07-29] MEDS ORDERED: ACETAMINOPHEN TAB 500 MG TAB PO STA (22:31)
[2019-07-29 22:38] LABS: Calcium 8.8 mg/dL (8.4-10.2); Magnesium 1.8 mg/dL (1.6-2.3); Potassium 4.2 mmol/L (3.5-5.1)
--- NOTE | 2019-07-29 22:51 | XR ---
EXAMINATION TYPE: XR chest 1V portable DATE OF EXAM: 07/29/2019 COMPARISON: 07/21/2019 HISTORY: Short of breath TECHNIQUE: FINDINGS: There is some patchy airspace infiltrate in both lower lobes. The other lung santana are leesa ar. Heart and mediastinum are normal. There are no hilar masses. There is no pleural effusion. IMPRESSION: Bilateral mild lower lobe pneumonia appears new compared to old exam.
[2019-07-29] MEDS ORDERED: LORazepam 2 MG/ML INJ IV STA (23:13)
[2019-07-29] MEDS ORDERED: ACETAMINOPHEN TAB 325 MG TAB PO PRN (23:15)
[2019-07-29] MEDS ORDERED: SODIUM CHLORIDE 0.9% 1,000 ML IV SCH (23:15)
[2019-07-29] MEDS ORDERED: NALOXONE 0.4 MG/ML 1 ML VIAL IV PRN (23:15)
[2019-07-29] MEDS ORDERED: ONDANSETRON 4 MG/2 ML VIAL IVP PRN (23:15)
[2019-07-29] MEDS ORDERED: ALBUTEROL NEBULIZED 2.5 MG/3 ML INHALATION PRN (23:17)
[2019-07-29] MEDS ORDERED: cefTRIAXone IN SWFI 1,000 MG/10 ML SYRINGE IVP STA (23:19)
[2019-07-29] MEDS: AMPICILLIN-SULBACTAM 3 GM in SODIUM CHLORIDE 0.9% 100 ML IVPB ONE (23:23)
[2019-07-29] MEDS ORDERED: AZITHROMYCIN 500 MG in SODIUM CHLORIDE 0.9% 250 ML IVPB ONE (23:30)
[2019-07-29] MEDS ORDERED: ASPIRIN 81 MG PO SCH (23:30)
[2019-07-30 01:07] VITALS: RESP 18
[2019-07-30] MEDS: AMPICILLIN-SULBACTAM 3 GM in SODIUM CHLORIDE 0.9% 100 ML IVPB ONE (01:30)
[2019-07-30] MEDS ORDERED: ALBUTEROL INHALER 60 PUFF/8 GM INHALER INHALATION PRN (05:33)
[2019-07-30] MEDS ORDERED: LOSARTAN-HCTZ 50-12.5 MG 1 EACH TAB PO SCH (09:00)
[2019-07-30] MEDS ORDERED: LOSARTAN 50 MG TAB PO SCH (09:00)
[2019-07-30] MEDS ORDERED: DORZOLAMIDE-TIMOLOL 2.23%/0.68 10ML BTL LEFT EYE SCH (14:29)
[2019-07-30] MEDS ORDERED: BRIMONIDINE TARTRATE 0.2% DROPS 5 ML BTL LEFT EYE SCH (14:29)
[2019-07-30] MEDS ORDERED: ASCORBIC ACID 500 MG TAB PO SCH (14:30)
[2019-07-30] MEDS ORDERED: ENOXAPARIN 40 MG/0.4 ML SYRINGE SQ SCH (14:30)
[2019-07-30] MEDS ORDERED: CYANOCOBALAMIN 500 MCG TAB PO SCH (14:30)
[2019-07-30 15:01] VITALS: BP 159/93; PULSE 72; TEMP 97
--- NOTE | 2019-07-30 15:19 | P.HPIM ---
History of Present Illness H&P Date: 07/30/19 Chief Complaint: Cough History of presenting to plan: This is a pleasant 64-year-old patient of Dr. Lazaro peck. Chronic stable medical conditions include diabetes mellitus type 2, GERD, hypertension,(s) sleep apnea uses CPAP. Patient on June 26 to travel to [facility] to meet up with family. 2 young kids of age 3 and 5 are both sick. He left there (July 04 to come back to [place]. On July 15 he left for [place]. Just prior to leaving his had been sick but she had recovered by July 15. Patient returned from [place] on July 19. Was doing fine. That afternoon he started having respiratory symptoms. Developed a cough for some clear sputum. On July 20 presented to the ER. Patient was tested [id number].. He tested positive. He was instructed to go back home. Patient had been doing fine. Yesterday he developed again some cough and some clear sputum some low-grade fever. Mild shortness of breath. Presented to the ER for any was admitted. Patient is put on IV antibiotic for secondary infection. This morning patient's feeling well. No myalgia. No headache. Appetite is good. Using his CPAP up to the bathroom. 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 Alcohol occasionally Physical examination: VITAL SIGNS: 100.7, 112, 22, blood pressure 176/86, 97% on room air GENERAL: BMI 33, sitting up on the bed, comfortable. EYES: Pupils equal. Conjunctiva normal. HEENT: External appearance of nose and ears normal, oral cavity grossly normal. NECK: JVD not raised; masses not palpable. HEART: First and second heart sounds are normal; no edema. LUNGS: Respiratory rate normal; slightly decreased breath sounds, minimal wheezing. ABDOMEN: Soft, nontender, liver spleen not palpable, no masses palpable. PSYCH: Alert and oriented x3; mood and affect normal. NEUROLOGICAL: Cranial nerves grossly intact; no facial asymmetry, power and sensation grossly intact. LYMPHATICS: No lymph nodes palpable in the axilla and neck INVESTIGATIONS, reviewed in the clinical context: White count 6.3 hemoglobin 13 platelets 238 potassium 4.2 creatinine 1.05 Chest x-ray film personally reviewed by me-some basal mild infiltrates Assessment: -Acute COVID-19 infection. Was diagnosed on July 20. Patient was sent home for self-isolation. Now presents with some worsening of symptoms. Patient has low-grade fever. Slight tachycardia and initial presentation. Patient's pulse oxing well on room air. Good appetite. -Diabetes mellitus type 2 on oral hypoglycemic -Essential hypertension -Obesity BMI 33 -Obstructive sleep apnea uses CPAP Plan: Patient be started on nebulized bronchodilators, inhaled steroid. Continue with home medication Accu-Cheks. Consultation made to pulmonary and infectious disease. Care was discussed at length with the patient. Questions were answe red. Lovenox for DVT prophylaxis. Hospital protocol is being used for COVID 19 infection. Past Medical History Past Medical History: COPD, Diabetes Mellitus, Eye Disorder, GERD/Reflux, Hypertension, Pneumonia, Sleep Apnea/CPAP/BIPAP Additional Past Medical History / Comment(s): glaucoma, past hx. colon polyps, History of Any Multi-Drug Resistant Organisms: None Reported Past Surgical History: Heart Catheterization Additional Past Surgical History / Comment(s): colonoscopies, vocal cord polyp removed, pilonidal cyst removed, stress test Past Anesthesia/Blood Transfusion Reactions: No Reported Reaction Past Psychological History: No Psychological Hx Reported Smoking Status: Former smoker Past Alcohol Use History: Occasional Past Drug Use History: None Reported - Past Family History Father History Unknown: Yes Additional Family Medical History / Comment(s): of lung cancer Mother History Unknown: Yes Family Medical History: Diabetes Mellitus Additional Family Medical History / Comment(s): due to diabetic complications Medications and Allergies Home Medications Medication Instructions Recorded Confirmed Type Dorzolamide HCl/Timolol Maleat 1 drop LEFT EYE BID 06/16/14 07/29/19 History [Cosopt Eye Drops] Latanoprost Ophth [Xalatan 0.005%] 1 drops LEFT EYE HS 06/16/14 07/29/19 History Aspirin 81 mg PO Q48H 10/20/14 07/29/19 History Cholecalciferol [Vitamin D3 (25 2,000 unit PO DAILY 10/20/14 07/29/19 History Mcg = 1000 Iu)] Flaxseed [Flaxseed Oil] 1,000 mg PO DAILY 10/20/14 07/29/19 History Ascorbic Acid [Vitamin C] 500 mg PO DAILY 01/01/19 07/29/19 History Calcium Carbonate [Calcium] 600 mg PO DAILY 01/01/19 07/29/19 History Cyanocobalamin (Vitamin B-12) 1,000 mcg PO DAILY 01/01/19 07/29/19 History [Vitamin B-12] Multivitamins, Thera [Multivitamin 1 tab PO DAILY 01/01/19 07/29/19 History (formulary)] Turmeric Root Extract [Turmeric] 500 mg PO DAILY 01/01/19 07/29/19 History Albuterol Inhaler [Ventolin Hfa 1 - 2 puff INHALATION RT-Q6H PRN 07/29/19 07/29/19 History Inhaler] Brimonidine Tartrate [Alphagan P 1 drops LEFT EYE BID 07/29/19 07/29/19 History 0.2% Ophth Soln] Hydrochlorothiazide 12.5mg Tab 12.5 mg PO DAILY 07/29/19 07/29/19 History L.acidoph,Paracasei, B.lactis 1 cap PO DAILY 07/29/19 07/29/19 History [Probiotic] Losartan Potassium 100 mg PO DAILY 07/29/19 07/29/19 History Magnesium Oxide [Mag-Ox] 250 mg PO DAILY 07/29/19 07/29/19 History Allergies Allergy/AdvReac Type Severity Reaction Status Date / Time apple Allergy Unknown Verified 07/29/19 21:43 broccoli Allergy Unknown Verified 07/29/19 21:43 cat dander Allergy Unknown Verified 07/29/19 21:43 Milk Containing Products Allergy Unknown Verified 07/29/19 21:43 [Dairy] wheat Allergy Unknown Verified 07/29/19 21:43 codeine AdvReac AGITATION Verified 07/29/19 21:43 Physical Exam Vitals: Vital Signs Temp Pulse Pulse Resp BP BP Pulse Ox 07/30/19 08:00 18 07/30/19 04:59 97.8 F 88 18 158/95 93 L 07/30/19 00:15 98.2 F 97 18 144/85 92 L 07/29/19 22:49 23 07/29/19 22:48 87 21 165/88 96 07/29/19 21:54 100.7 F H 112 H 22 176/86 97 Intake and Output 07/29/19 07/30/19 07/30/19 22:59 06:59 14:59 Other: Voiding Method Toilet Toilet # Voids 1 Weight 104.326 kg 104.326 kg Results CBC & Chem 7: 07/29/19 21:54 07/29/19 21:54 Labs: Abnormal Lab Results - Last 24 Hours (Table) 07/29/19 07/29/19 07/29/19 Range/Units 21:54 21:54 21:54 Hct 38.3 L (39.0-53.0) % VBG pH 7.47 H (7.31-7.41) Sodium 135 L (137-145) mmol/L Glucose 128 H (74-99) mg/dL Thrombosis Risk Factor Assmnt - Choose All That Apply Each Factor Represents 1 point: Abnormal pulmonary function (COPD) Each Risk Factor Represents 2 Points: Age 61-74 years Thrombosis Risk Factor Assessment Total Risk Factor Score: 3 Thrombosis Risk Factor Assessment Level: Moderate Risk
[2019-07-30] MEDS ORDERED: BUDESONIDE 1 MG/2 ML NEBU INHALATION SCH (15:30)
[2019-07-30 15:51] LABS: C Reactive Protein 48.3 mg/L (<10.0)
--- NOTE | 2019-07-30 15:57 | P.CNPUL ---
History of Present Illness Consult date: 07/30/19 Reason for consult: cough Chief complaint: Dry cough History of present illness: 64-year-old patient of Dr. Holley with known positive COVID 19 result, and this was done at [facility], after patient returned from [place] 8 days ago and developed symptoms of fevers, and shortness of breath and patient was seen in the emergency department. Prior to his trip to [place] patient had a travel to [place] approximately 10 days ago. Patient states he is one of the first Covid 19 positive tests in [facility]. His fevers lasted for approximately 2-3 days and then went away. Patient was self isolating at home with his who is also positive for COVID 19. Yesterday she developed worsening cough, but no significant shortness of breath. He states his cough was is main complaints and he could not stop coughing. he is at times bringing up some clear phlegm. Patient called his primary care provider, who directed him to go to the emergency department. No nausea no vomiting no diarrhea, no altered mentation. Chest x-ray was obtained showing bilateral mild lower lobe pneumonia that was new compared to his chest x-ray taken 8 days ago during his prior ER visit. Labs showed normal white count of 6.3, hemoglobin of 13.0, no lymphopenia, no neutropenia, sodium was 135, the rest of electrolytes and renal profile were within normal limits, plasma lactic acid was 0.8. Venous blood gas was obtained showing pCO2 of 39, and pH of 7.47. A is febrile presentation with a temp of 100.7F, room air pulse ox was 97%, blood pressure is 144/85. Patient was placed in isolation, he was placed on azithromycin and ceftriaxone, and breathing treatments, and on today's exam there is hardly any coughing, patient is feeling better, no acute events overnight, no significant wheezing or con gestion. We were asked to see the patient in evaluation for his symptoms Review of Systems All systems: negative Constitutional: Denies chills, Denies fever Eyes: denies blurred vision, denies pain Ears, nose, mouth and throat: Denies headache, Denies sore throat Cardiovascular: Denies chest pain, Denies shortness of breath Respiratory: Reports cough with sputum, Denies cough Gastrointestinal: Denies abdominal pain, Denies diarrhea, Denies nausea, Denies vomiting Musculoskeletal: Denies myalgias Integumentary: Denies pruritus, Denies rash Neurological: Denies numbness, Denies weakness Psychiatric: Denies anxiety, Denies depression Endocrine: Denies fatigue, Denies weight change Past Medical History Past Medical History: COPD, Diabetes Mellitus, Eye Disorder, GERD/Reflux, Hypertension, Pneumonia, Sleep Apnea/CPAP/BIPAP Additional Past Medical History / Comment(s): glaucoma, past hx. colon polyps, History of Any Multi-Drug Resistant Organisms: None Reported Past Surgical History: Heart Catheterization Additional Past Surgical History / Comment(s): colonoscopies, vocal cord polyp removed, pilonidal cyst removed, stress test Past Anesthesia/Blood Transfusion Reactions: No Reported Reaction Past Psychological History: No Psychological Hx Reported Smoking Status: Former smoker Past Alcohol Use History: Occasional Past Drug Use History: None Reported - Past Family History Father History Unknown: Yes Additional Family Medical History / Comment(s): of lung cancer Mother History Unknown: Yes Family Medical History: Diabetes Mellitus Additional Family Medical History / Comment(s): due to diabetic complications Medications and Allergies Home Medications Medication Instructions Recorded Confirmed Type Dorzolamide HCl/Timolol Maleat 1 drop LEFT EYE BID 06/16/14 07/29/19 History [Cosopt Eye Drops] Latanoprost Ophth [Xalatan 0.005%] 1 drops LEFT EYE HS 06/16/14 07/29/19 History Aspirin 81 mg PO Q48H 10/20/14 07/29/19 History Cholecalciferol [Vitamin D3 (25 2,000 unit PO DAILY 10/20/14 07/29/19 History Mcg = 1000 Iu)] Flaxseed [Flaxseed Oil] 1,000 mg PO DAILY 10/20/14 07/29/19 History Ascorbic Acid [Vitamin C] 500 mg PO DAILY 01/01/19 07/29/19 History Calcium Carbonate [Calcium] 600 mg PO DAILY 01/01/19 07/29/19 History Cyanocobalamin (Vitamin B-12) 1,000 mcg PO DAILY 01/01/19 07/29/19 History [Vitamin B-12] Multivitamins, Thera [Multivitamin 1 tab PO DAILY 01/01/19 07/29/19 History (formulary)] Turmeric Root Extract [Turmeric] 500 mg PO DAILY 01/01/19 07/29/19 History Albuterol Inhaler [Ventolin Hfa 1 - 2 puff INHALATION RT-Q6H PRN 07/29/19 07/29/19 History Inhaler] Brimonidine Tartrate [Alphagan P 1 drops LEFT EYE BID 07/29/19 07/29/19 History 0.2% Ophth Soln] Hydrochlorothiazide 12.5mg Tab 12.5 mg PO DAILY 07/29/19 07/29/19 History L.acidoph,Paracasei, B.lactis 1 cap PO DAILY 07/29/19 07/29/19 History [Probiotic] Losartan Potassium 100 mg PO DAILY 07/29/19 07/29/19 History Magnesium Oxide [Mag-Ox] 250 mg PO DAILY 07/29/19 07/29/19 History Allergies Allergy/AdvReac Type Severity Reaction Status Date / Time apple Allergy Unknown Verified 07/29/19 21:43 broccoli Allergy Unknown Verified 07/29/19 21:43 cat dander Allergy Unknown Verified 07/29/19 21:43 Milk Containing Products Allergy Unknown Verified 07/29/19 21:43 [Dairy] wheat Allergy Unknown Verified 07/29/19 21:43 codeine AdvReac AGITATION Verified 07/29/19 21:43 Physical Exam Vitals: Vital Signs Temp Pulse Pulse Resp BP BP Pulse Ox 07/30/19 14:52 97.0 F L 72 18 159/93 97 07/30/19 08:00 18 07/30/19 04:59 97.8 F 88 18 158/95 93 L 07/30/19 00:15 98.2 F 97 18 144/85 92 L 07/29/19 22:49 23 07/29/19 22:48 87 21 165/88 96 07/29/19 21:54 100.7 F H 112 H 22 176/86 97 Intake and Output 07/30/19 07/30/19 07/30/19 06:59 14:59 22:59 Intake Total 900 Balance 900 Intake: Oral 900 Other: Voiding Method Toilet Toilet # Voids 1 2 Weight 104.326 kg GENERAL EXAM: Alert, very pleasant, 64-year-old white male, with a room air pulse ox of 93-97%, afebrile, hemodynamically stable, comfortable in no apparent distress. HEAD: Normocephalic/atraumatic. EYES: Normal reaction of pupils, equal size. Conjunctiva pink, sclera white. NOSE: Clear with pink turbinates. THROAT: No erythema or exudates. NECK: No masses, no JVD, no thyroid enlargement, no adenopathy. CHEST: No chest wall deformity. Symmetrical expansion. LUNGS: Equal air entry with no crackles, wheeze, rhonchi or dullness. CVS: Regular rate and rhythm, normal S1 and S2, no gallops, no murmurs, no rubs ABDOMEN: Soft, nontender. No hepatosplenomegaly, normal bowel sounds, no guarding or rigidity. EXTREMITIES: No clubbing, no edema, no cyanosis, 2+ pulses and upper and lower extremities. MUSCULOSKELETAL: Muscle strength and tone normal. SPINE: No scoliosis or deformity SKIN: No rashes CENTRAL NERVOUS SYSTEM: Alert and oriented -3. No focal deficits, tone is normal in all 4 extremities. PSYCHIATRIC: Alert and oriented -3. Appropriate affect. Intact judgment and insight. Results - Laboratory Findings CBC and BMP: 07/29/19 21:54 07/29/19 21:54 Abnormal lab findings: Abnormal Labs 07/29/19 07/29/19 07/29/19 21:54 21:54 21:54 Hct 38.3 L VBG pH 7.47 H Sodium 135 L Glucose 128 H - Diagnostic Findings Chest x-ray: report reviewed, image reviewed Assessment and Plan Plan: Assessment: #1. Acute COVID 19 infection, has been in self isolation since July 20. Patient had shortness of breath, cough, fever nasal congestion and in view of recent travel history to [place] and [place] was tested and found positive for COVID 19. #2. Lingering cough and low-grade fevers related to the above, chest x-ray showed mild bilateral lower lobe pneumonia #3. Recent travel to [place] and [place] #4. COPD, not oxygen dependent at baseline #5. 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 Obstructive sleep apnea on CPAP therapy at 12 cm of water #7. Hypertension #8. Mild coronary artery disease involving his RCA #9. Diabetes mellitus #10. GERD/reflux #11. Vocal cord polyps, with surgical removal Plan: No acute events overnight, patient is improving, he is on combination of Zithromax and Rocephin, only one initial low-grade fever on presentation, he has been afebrile since, room air pulse ox of 93-97%, hemodynamically patient is stable, his symptoms are mild, his cough is improving, patient is ambulating about the room, he is on room air. From our perspective he is stable for discharge home today on oral antibiotics, he will continue in self isolation until his symptoms resolve, and he will need repeat COVID 19 testing. This will be done through the [facility] healthcare department. I performed a history & physical examination of the patient and discussed their management with my nurse practitioner, Nilda Akhtar. I reviewed the nurse practitioner's note and agree with the documented findings and plan of care. Lung sounds are positive for diminished breath sounds The findings and the impression was discussed with the patient. I attest to the documentation by the nurse practitioner. Time with Patient: Greater than 30
[2019-07-30] MEDS ORDERED: IPRATROPIUM-ALBUTEROL 3 ML NEB INHALATION SCH (16:00)
[2019-07-30] MEDS ORDERED: TIOTROPIUM 18 MCG/PUFF INHALER INHALATION SCH ×2 (16:30→17:03)
[2019-07-30] MEDS ORDERED: TIOTROPIUM 18 MCG/PUFF INHALER INHALATION ONE (17:30)
[2019-07-30] MEDS ORDERED: FLUTICASONE 220 MCG INHALER INHALATION SCH (20:00)
[2019-07-30] MEDS ORDERED: LATANOPROST 0.005% OPHTH DROPS 2.5 ML BTL LEFT EYE SCH (21:00)
[2019-07-31] MEDS ORDERED: AZITHROMYCIN 500 MG TAB PO SCH (09:00)
--- NOTE | 2019-08-01 20:54 | P.DS ---
Providers Date of admission: 07/29/19 23:15 Expected date of discharge: 07/30/19 Attending physician: Mike Desai Consults: 07/29/19 23:04 Consult Physician Routine Consulting Provider: Malik Lane Consult Reason/Comments: dyspnea, covid 19 positive Do you want consulting provider notified?: Yes Consult Physician Routine Consulting Provider: Tracy Schneider Consult Reason/Comments: covid 19+, bilateral lung infiltrates Do you want consulting provider notified?: Yes [facility]: Chief Complaint: Cough History of presenting to plan: This is a pleasant 64-year-old patient of Dr. Lazaro peck. Chronic stable medical conditions include diabetes mellitus type 2, GERD, hypertension,(s) sleep apnea uses CPAP. Patient on June [address] to [facility] to meet up with family. 2 young kids of age 3 and 5 are both sick. He left there (July 04 to come back to [place]. On July 15 he left for [place]. Just prior to leaving his had been sick but she had recovered by July 15. Patient returned from [place] on July 19. Was doing fine. That afternoon he started having respiratory symptoms. Developed a cough for some clear sputum. On July 20 presented to the ER. Patient was tested [id number].. He tested positive. He was instructed to go back home. Patient had been doing fine. Yesterday he developed again some cough and some clear sputum some low-grade fever. Mild shortness of breath. Presented to the ER for any was admitted. Patient is put on IV antibiotic for secondary infection. This morning patient's feeling well. No myalgia. No headache. Appetite is good. Using his CPAP up to the bathroom. Care was discussed with pulmonary. Patient was cleared by Dr. Dominguez for discharge. Dr. Schneider from ID discussed with me. Patient stable for discharge. Patient feeling much better. Social isolation had been discussed with the patient. He is to return to the hospitalist if symptoms worsen Discussion and discharge planning more than 35 minutes Consultation: Dr. Lane from pulmonary Dr. michelle CASTAÑEDA. Physical examination: VITAL SIGNS: 97, 72, 18, blood pressure 159/93, 97% on room air GENERAL:, sitting up on the bed, comfortable. EYES: Pupils equal. Conjunctiva normal. HEENT: External appearance of nose and ears normal, oral cavity grossly normal. NECK: JVD not raised; masses not palpable. HEART: First and second heart sounds are normal; no edema. LUNGS: Respiratory rate normal; slightly decreased breath sounds, minimal wheezing. ABDOMEN: Soft, nontender, liver spleen not palpable, no masses palpable. PSYCH: Alert and oriented x3; mood and affect normal. INVESTIGATIONS, reviewed in the clinical context: White count 6.3 hemoglobin 13 platelets 238 potassium 4.2 creatinine 1.05 Chest x-ray film personally reviewed by me-some basal mild infiltrates Assessment: -Acute COVID-19 infection causing pneumonia. Was diagnosed on July 20. Patient was sent home for self-isolation. Now presents with some worsening of symptoms. Patient has low-grade fever. Slight tachycardia and initial presentation. Patient's pulse oxing well on room air. Good appetite. -Diabetes mellitus type 2 on oral hypoglycemic -Essential hypertension -Obesity BMI 33 -Obstructive sleep apnea uses CPAP Disposition: Home Patient Condition at Discharge: Stable Plan - Discharge Summary Discharge Rx Participant: No New Discharge Prescriptions: New Cefuroxime Axetil [Ceftin] 500 mg PO BID #10 tab predniSONE 0 mg PO DIRECTED #10 tab Beclomethasone Dip 80 Mcg/Puff [Qvar] 1 puff INHALATION BID #1 puff Tiotropium 18 Mcg/Puff [Spiriva] 1 puff INHALATION DAILY #1 inhaler Continue Latanoprost Ophth [Xalatan 0.005%] 1 drops LEFT EYE HS Dorzolamide HCl/Timolol Maleat [Cosopt Eye Drops] 1 drop LEFT EYE BID Cholecalciferol [Vitamin D3 (25 Mcg = 1000 Iu)] 2,000 unit PO DAILY Aspirin 81 mg PO Q48H Multivitamins, Thera [Multivitamin (formulary)] 1 tab PO DAILY Cyanocobalamin (Vitamin B-12) [Vitamin B-12] 1,000 mcg PO DAILY Ascorbic Acid [Vitamin C] 500 mg PO DAILY Calcium Carbonate [Calcium] 600 mg PO DAILY Magnesium Oxide [Mag-Ox] 250 mg PO DAILY Hydrochlorothiazide 12.5mg Tab 12.5 mg PO DAILY Losartan Potassium 100 mg PO DAILY Brimonidine Tartrate [Alphagan P 0.2% Ophth Soln] 1 drops LEFT EYE BID L.acidoph,Paracasei, B.lactis [Probiotic] 1 cap PO DAILY Albuterol Inhaler [Ventolin Hfa Inhaler] 1 - 2 puff INHALATION RT-Q6H PRN PRN Reason: Shortness Of Breath No Action Flaxseed [Flaxseed Oil] 1,000 mg PO DAILY Turmeric Root Extract [Turmeric] 500 mg PO DAILY Discharge Medication List Dorzolamide HCl/Timolol Maleat [Cosopt Eye Drops] 1 drop LEFT EYE BID 06/16/14 [History] Latanoprost Ophth [Xalatan 0.005%] 1 drops LEFT EYE HS 06/16/14 [History] Aspirin 81 mg PO Q48H 10/20/14 [History] Cholecalciferol [Vitamin D3 (25 Mcg = 1000 Iu)] 2,000 unit PO DAILY 10/20/14 [History] Flaxseed [Flaxseed Oil] 1,000 mg PO DAILY 10/20/14 [History] Ascorbic Acid [Vitamin C] 500 mg PO DAILY 01/01/19 [History] Calcium Carbonate [Calcium] 600 mg PO DAILY 01/01/19 [History] Cyanocobalamin (Vitamin B-12) [Vitamin B-12] 1,000 mcg PO DAILY 01/01/19 [History] Multivitamins, Thera [Multivitamin (formulary)] 1 tab PO DAILY 01/01/19 [History] Turmeric Root Extract [Turmeric] 500 mg PO DAILY 01/01/19 [History] Albuterol Inhaler [Ventolin Hfa Inhaler] 1 - 2 puff INHALATION RT-Q6H PRN 07/29/19 [History] Brimonidine Tartrate [Alphagan P 0.2% Ophth Soln] 1 drops LEFT EYE BID 07/29/19 [History] Hydrochlorothiazide 12.5mg Tab 12.5 mg PO DAILY 07/29/19 [History] L.acidoph,Paracasei, B.lactis [Probiotic] 1 cap PO DAILY 07/29/19 [History] Losartan Potassium 100 mg PO DAILY 07/29/19 [History] Magnesium Oxide [Mag-Ox] 250 mg PO DAILY 07/29/19 [History] Beclomethasone Dip 80 Mcg/Puff [Qvar] 1 puff INHALATION BID #1 puff 07/30/19 [Rx] Cefuroxime Axetil [Ceftin] 500 mg PO BID #10 tab 07/30/19 [Rx] Tiotropium 18 Mcg/Puff [Spiriva] 1 puff INHALATION DAILY #1 inhaler 07/30/19 [Rx] predniSONE 0 mg PO DIRECTED #10 tab 07/30/19 [Rx] Follow up Appointment(s)/Referral(s): Malik Lane MD [STAFF PHYSICIAN] - 1 Week Lazaro Holley MD [Primary Care Provider] - 1 Week Patient Instructions/Handouts: Viral Pneumonia (DC) Activity/Diet/Wound Care/Special Instructions: Strict Social isolation as per CDC for COVID-19, limited activity Diabetic diet Discharge Disposition: HOME SELF-CARE
--- NOTE | 2019-08-03 12:21 | CDI ---
Documentation Clarification Form Date: 08/03/19 From: Cathy Wang Phone: If you have a question about this query, please contact Sarai Kumar, [facility] at [phone] between 8am and 5pm. Admit Date: 07/29/19 Discharge Date: 07/30/19 Patient Name: MARLENE RODRÍGUEZ Visit Number: [id number] ATTENTION: The Clinical Documentation Specialists (CDI) and [facility] Coding Staff appreciate your assistance in clarifying documentation. Please respond to the clarification below the line at the bottom and electronically sign. The CDI & [facility] Coding staff will review the response and follow-up if needed. Please note: Queries are made part of the Legal Health Record. If you have any questions, please contact the author of this message via ITS. Dear Dr. Mike Desai, ED note documents respiratory failure. Blood gas: VBG pH:-7.47, pCO2-39 & HCO3 - 28 Please specify the acuity of this condition with terms such as: Acute Respiratory Failure Acute on Chronic Respiratory Failure Acute Respiratory Distress Acute Respiratory Insufficiency Respiratory failure ruled out Other Diagnosis, please specify Unable to determine Specificity: If known, further specify (if known): With hypercapnia? (pCO2 >50 and pH <7.35) With hypoxia? (pO2 <60 mm Hg or SpO2 <91% on room air) Acute respiratory failure ruled out MTDD
== END 2019-07-30 20:18 | disposition home or self-care (01) | DRG 194 ==
LOC: EC 21:29 → 6NMEDSUR 23:15
PROVIDERS: ADMIT Hospitalist; ATTEND Hospitalist
PROC: 5A09357 Assistance with Respiratory Ventilation, Less than 24 Consecutive Hours, Continuous Positive Airway Pressure (ICD-10-PCS; principal; 2019-07-30)
DX: J12.89 Other viral pneumonia (principal); J44.0 Chronic obstructive pulmonary disease with (acute) lower respiratory infection; B97.29 Other coronavirus as the cause of diseases classified elsewhere; E11.39 Type 2 diabetes mellitus with other diabetic ophthalmic complication; H40.9 Unspecified glaucoma; H42 Glaucoma in diseases classified elsewhere; G47.33 Obstructive sleep apnea (adult) (pediatric); K21.9 Gastro-esophageal reflux disease without esophagitis; I25.10 Atherosclerotic heart disease of native coronary artery without angina pectoris; I10 Essential (primary) hypertension; E66.9 Obesity, unspecified; Z68.33 Body mass index [BMI] 33.0-33.9, adult; Z79.82 Long term (current) use of aspirin; Z79.899 Other long term (current) drug therapy; Z87.891 Personal history of nicotine dependence; Z87.01 Personal history of pneumonia (recurrent); Z99.89 Dependence on other enabling machines and devices; Z86.010 Personal history of colon polyps; Z98.890 Other specified postprocedural states; Z78.9 Other specified health status; Z91.011 Allergy to milk products; Z88.5 Allergy status to narcotic agent; Z91.018 Allergy to other foods; Z91.048 Other nonmedicinal substance allergy status; Z83.3 Family history of diabetes mellitus; Z80.1 Family history of malignant neoplasm of trachea, bronchus and lung
CPT/HCPCS: 36415; 71045; 80048; 82803; 83605; 83735; 84145; 84450; 85025; 86140; 87040; 94640; 96365; 96375; 99285

== ENCOUNTER → 2019-11-03 | Outpatient (CLI) | payer MEDICARE ==
--- NOTE | 2019-11-04 04:27 | CT ---
EXAMINATION TYPE: CT soft tissue neck w con DATE OF EXAM: 11/03/2019 COMPARISON: Correlation thyroid ultrasound 11/03/2019 HISTORY: 64-year-old male Generalized left sided neck swelling. R22.1, R59.0. TECHNIQUE: Contiguous axial scanning of the soft tissues of the neck performed with IV Contrast, sandy ent injected with 100ml mL of Isovue 300. Coronal/sagittal reconstructions performed. CT DLP: 650.1 mGycm Automated exposure control for dose reduction was used. FINDINGS: Visualized intracranial structures show a dominant left vertebral artery. Orbits and globes and masto id air cells appear clear. Lobulated mucosal thickening medial right maxillary sinus and along the fl oor of the left maxillary sinus. Nasopharynx is clear. Punctate calcifications within the right tubal tonsils in the bilateral palatine tonsils suggests seq uela of prior infection. Oropharynx otherwise appears clear. Epiglottis and prevertebral soft tissues appear normal. Tracheal column and visualized upper lungs are clear. Conventional arch vessel branching anatomy. Moderate atherosclerotic changes at both bifurcations lik cheri with a moderate, approximately 50% narrowing at each carotid bifurcation and at the proximal righ t carotid bulb. Small 5 mm calcified nodule within the right lobe of the thyroid gland. Thyroid gland otherwise appea rs satisfactory. Submandibular glands appear symmetrical and normal. Parotid glands appear satisfactory. Symmetrical prominent submandibular space lymph nodes measuring up to 7 mm on either side. Prominent but nonenlarged bilateral station 2A lymph node measuring 1.1 cm short axis, refer to axial image 58 and sagittal image 57. On the right, sagittal image 30. Additional scattered nonenlarged lymph nodes on both sides of the neck. No cervical lymphadenopathy by CT size criteria Moderate to advanced degenerative disc disease mid and lower cervical spine. 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 IMPRESSION: NO CERVICAL LYMPHADENOPATHY BY CT SIZE CRITERIA. NO SUSPICIOUS NECK MASS IDENTIFIED. If persistent cl inical concern, the exam can be reviewed with directed attention. Otherwise, clinical surveillance is recommended for any swelling/palpable site. If any enlargement is noted, consider repeat targeted ul trasound.
--- NOTE | 2019-11-04 07:12 | US ---
EXAMINATION TYPE: US thyroid st tissue head/neck DATE OF EXAM: 11/03/2019 COMPARISON: NONE CLINICAL HISTORY: R22.1 neck mass, R59.0 enlarged lymph nodes. The left neck was scanned where patient states he has discomfort. Patient's order states enlarged nod es. No definite abnormality noted. Incidental note is made of calcified right thyroid nodule measuring 0.5 cm. IMPRESSION: No distinct abnormalities identified at the site of concern. Calcified thyroid nodule is noted on the right.
== END ==
LOC: RADUSWWP 16:07
PROVIDERS: ATTEND Otolaryngology
DX: R59.0 Localized enlarged lymph nodes (principal); R22.1 Localized swelling, mass and lump, neck
CPT/HCPCS: 82565; 84520; 76536; 70491; 36415; Q9967

== ENCOUNTER → 2019-11-27 | Outpatient (CLI) | payer MEDICARE ==
--- NOTE | 2019-11-29 13:39 | US ---
EXAMINATION TYPE: US carotid duplex BILAT DATE OF EXAM: 11/27/2019 COMPARISON: NONE CLINICAL HISTORY: 64-year-old male R09.89 carotid bruit,R93.8 abnormal carotid duplex. TECHNIQUE: Carotid duplex ultrasound examination. Indirect Doppler criteria was utilized. FINDINGS: EXAM MEASUREMENTS: RIGHT: Peak Systolic Velocity (PSV) cm/sec ----- Right CCA: 65.1 ----- Right ICA: 83.6 ----- Right ECA: 96.5 ICA/CCA ratio: 1.3 RIGHT: End Diastole cm/sec ----- Right CCA: 25.0 ----- Right ICA: 28.0 ----- Right ECA: 18.9 LEFT: Peak Systolic Velocity (PSV) cm/sec ----- Left CCA: 68.8 ----- Left ICA: 116.0 ----- Left ECA: 138.3 ICA/CCA ratio: 1.7 LEFT: End Diastole cm/sec ----- Left CCA: 22.6 ----- Left ICA: 42.2 ----- Left ECA: 18.7 VERTEBRALS (direction of flow): Right Vertebral: Antegrade Left Vertebral: Antegrade Rhythm: Normal Tube Sorter notes: Moderate wall changes noted in bilateral carotid arteries with calcified wall bryan ges especially noted at bilateral carotid bifurcations. Elevated PSV (greater than 125cm/sec) is note d in proximal Left ECA. IMPRESSION: Moderate atherosclerotic change at the carotid bifurcations. However, measurements do not indicate a hemodynamically significant stenosis of either internal carotid artery. Criteria for Assigning % of Stenosis / Diameter reduction (Estimation based on the indirect measurements of the internal carotid artery velocities (ICA PSV). 1. Normal (no stenosis)=ICA PSV < 125 cm/s: ratio < 2.0: ICA EDV<40 cm/s. 2. Less than 50% stenosis=ICA PSV < 125 cm/s: ratio < 2.0: ICA EDV<40 cm/s. 3. 50 to 69% stenosis=ICA PSV of 125 to 230 cm/s: ration 2.0 ? 4.0: ICA EDV 40-100 cm/s. 4. Greater than 70% stenosis to near occlusion= ICA PSV > 230 cm/s: ratio > 4.0: ICA EDV > 100 cm/s. 5. Near occlusion= ICA PSV velocities may be low or undetectable: variable ratio and ICA EDV. 6. Total occlusion=unable to detect flow.
== END | disposition home or self-care (01) ==
LOC: RADUSWWP 16:23
PROVIDERS: ATTEND Otolaryngology
DX: I65.23 Occlusion and stenosis of bilateral carotid arteries (principal)
CPT/HCPCS: 93880

== ENCOUNTER 2020-10-14 13:05 | Day surgery (SDC) | payer MEDICARE ==
[2020-10-12 12:00] VITALS: BMI 33.0
[~2020-10-14 13:05] MED LIST: DEXAMETHASONE SOD PHOSPHATE 4 MG/ML 1 ML VIAL IV ONE; LACTATED RINGERS 1,000 ML IV SCH; MIDAZOLAM 2 MG/2 ML VIAL IV PRN; ONDANSETRON 4 MG/2 ML VIAL IVP ONE; fentaNYL (PF) 50 MCG/ML 2 ML AMP IV PRN
--- NOTE | 2020-10-14 13:33 | XR ---
EXAMINATION TYPE: XR KUB DATE OF EXAM: 10/14/2020 1:24 PM CLINICAL HISTORY: Right-sided kidney stones. Presurgical TECHNIQUE: Single supine KUB image of the abdomen is obtained. COMPARISON: None. FINDINGS: There is a right ureteral stent. Prominent bowel gas obscuring the renal contours. There may be sever al tiny right renal calculi. Presumed pelvic vascular calculations and pelvic phleboliths. Degenerati ve changes of the lower lumbar spine and hips. IMPRESSION: 1. Right ureteral stent. 2. Large amount of bowel gas obscures visualization of the renal contours. There may be subtle tiny r ight renal calculi.
[2020-10-14] MEDS ORDERED: LIDOCAINE 1% (10MG/ML) FOR IV START INTRADERMA ONE (13:55)
[2020-10-14 14:07] LABS: Glucose,Whole Blood 163 mg/dL (75-99)
--- NOTE | 2020-10-14 15:32 | P.HPIHPCON ---
History of Present Illness H&P Date: 10/14/20 This is a 65-year-old male with history of a 1 cm right sided ureteral stone multiple nonobstructive renal stones, status post stent placement in September for acute kidney injury secondary to his obstructive stone. Surgical options for treatment of his stones were discussed with him. Discussed with him the option of ureteroscopy with holmium laser. Discussed with him the risk which includes but not limited to bleeding, infection, injury to the ureter. He understood all the risk and agreed to proceed with right-sided ureteroscopy, with holmium laser lithotripsy, stone basketing Consent for Procedure: I have explained the operation/procedure to the patient, including the risks, benefits, side effects, alternative therapies (including not receiving the proposed treatment or service), the likelihood of the patient achieving his/her goals, and potential recuperation problems for the procedure/sedation/analgesia, as well as any blood products, if indicated. I also explained to the patient the risks, benefits and side effects of the alternatives, as well as the risks related to not receiving the proposed procedure, care, treatment, or services. - Constitutional Constitutional: Denies chills, Denies fever - Cardiovascular Cardiovascular: Denies chest pain, Denies shortness of breath - Respiratory Respiratory: Denies cough, Denies 7 - Gastrointestinal Gastrointestinal: Denies abdominal pain, Denies diarrhea, Denies nausea, Denies vomiting Past Medical History Past Medical History: Coronary Artery Disease (CAD), COPD, Diabetes Mellitus, Eye Disorder, GERD/Reflux, Hypertension, Pneumonia, Sleep Apnea/CPAP/BIPAP Additional Past Medical History / Comment(s): glaucoma, hx colon polyps, Positive COVID 07/2019 w/ pneumonia. Hx elevated PSA. C-4 arthritis. Uses cpap. Hx UTI; Rt ureteral kidney stone History of Any Multi-Drug Resistant Organisms: None Reported Past Surgical History: Heart Catheterization Additional Past Surgical History / Comment(s): colonoscopies, vocal cord polyp removed, pilonidal cyst removed, cysto w/ ureteral stent 10/01/20 Past Anesthesia/Blood Transfusion Reactions: No Reported Reaction Smoking Status: Former smoker - Past Family History Father History Unknown: Yes Family Medical History: Cancer Additional Family Medical History / Comment(s): of lung cancer Mother History Unknown: Yes Family Medical History: Cancer, Diabetes Mellitus Additional Family Medical History / Comment(s): ovarian cancer; due to diabetic complications Medications and Allergies Home Medications Medication Instructions Recorded Confirmed Type Dorzolamide HCl/Timolol Maleat 1 drop LEFT EYE BID 06/16/14 10/12/20 History [Cosopt Eye Drops] Latanoprost Ophth [Xalatan 0.005%] 1 drops LEFT EYE HS 06/16/14 10/12/20 History Aspirin 81 mg PO Q48H 10/20/14 10/12/20 History Cholecalciferol [Vitamin D3 (25 50 mcg PO DAILY 10/20/14 10/12/20 History Mcg = 1000 Iu)] Flaxseed [Flaxseed Oil] 1,000 mg PO DAILY 10/20/14 10/12/20 History Ascorbic Acid [Vitamin C] 500 mg PO DAILY 01/01/19 10/12/20 History Calcium Carbonate [Calcium] 600 mg PO DAILY 01/01/19 10/12/20 History Cyanocobalamin (Vitamin B-12) 1,000 mcg SL DAILY 01/01/19 10/12/20 History [Vitamin B-12] Multivitamins, Thera [Multivitamin 1 tab PO DAILY 01/01/19 10/12/20 History (formulary)] Turmeric Root Extract [Turmeric] 500 mg PO DAILY 01/01/19 10/12/20 History Brimonidine Tartrate [Alphagan P 1 drops LEFT EYE BID 07/29/19 10/12/20 History 0.2% Ophth Soln] L.acidoph,Paracasei, B.lactis 1 cap PO DAILY 07/29/19 10/12/20 History [Probiotic] Losartan Potassium 100 mg PO DAILY 07/29/19 10/12/20 History Magnesium Oxide [Mag-Ox] 250 mg PO DAILY 07/29/19 10/12/20 History Antibiotic (Unknown Info) 1 tab PO DIRECTED 10/12/20 History Gabapentin [Neurontin] 100 mg PO DIRECTED PRN 10/12/20 10/12/20 History Hydrochlorothiazide 12.5 mg PO DAILY 10/12/20 10/12/20 History [hydroCHLOROthiazide] Allergies Allergy/AdvReac Type Severity Reaction Status Date / Time apple Allergy Unknown Verified 10/14/20 13:32 broccoli Allergy Unknown Verified 10/14/20 13:32 cat dander Allergy Unknown Verified 10/14/20 13:32 Milk Containing Products Allergy Unknown Verified 10/14/20 13:32 [Dairy] wheat Allergy Unknown Verified 10/14/20 13:32 codeine AdvReac AGITATION Verified 10/14/20 13:32 Surgical - Exam Vital Signs Temp Pulse Resp BP Pulse Ox 98.1 F 87 16 149/82 97 10/14/20 13:55 10/14/20 13:55 10/14/20 13:55 10/14/20 13:55 10/14/20 13:55 - General no distress, no pain - Eyes PERRL, normal ocular movement - ENT normal nares, normal mucosa Results - Labs Abnormal Lab Results - Last 24 Hours (Table) 10/14/20 Range/Units 13:56 POC Glucose (mg/dL) 163 H (75-99) mg/dL Assessment and Plan Assessment: 68-year-old male with history of right-sided ureteral stone -Or for right-sided ureteroscopy, with holmium laser lithotripsy, possible stent removal versus exchange
[2020-10-14] MEDS ORDERED: NEOSTIGMINE 1 MG/ML 10 ML VIAL ONE (16:04)
[2020-10-14] MEDS ORDERED: SUCCINYLCHOLINE CHLORIDE 100 MG/5 ML SYR IV ONE (16:04)
[2020-10-14] MEDS ORDERED: ROCURONIUM 10 MG/ML (5 ML VIAL) IV ONE (16:04)
[2020-10-14] MEDS ORDERED: LIDOCAINE 1% INJ 10MG/ML (20 ML MDV) ONE (16:04)
[2020-10-14] MEDS ORDERED: MIDAZOLAM 2 MG/2 ML VIAL ONE (16:04)
[2020-10-14] MEDS ORDERED: GLYCOPYRROLATE 0.2 MG/ML 2 ML VIAL ONE (16:04)
[2020-10-14] MEDS ORDERED: fentaNYL (PF) 50 MCG/ML 2 ML AMP ONE (16:04)
[2020-10-14] MEDS ORDERED: PROPOFOL 10 MG/ML 20 ML VIAL IV ONE (16:04)
[2020-10-14] MEDS ORDERED: PHENYLEPHRINE-0.9% NACL SYG 1,000 MCG/10 ML SYRINGE ONE (16:04)
[2020-10-14] MEDS ORDERED: IOPAMIDOL-370 50ML BTL MISCELLANE ONE ×2 (16:08→17:08)
[2020-10-14 17:39] VITALS: TEMP 96.8
--- NOTE | 2020-10-14 17:47 | P.OP ---
Date of Procedure: 10/14/20 Preoperative Diagnosis: Right-sided ureter, renal stones Postoperative Diagnosis: Same Procedure(s) Performed: Cystoscopy, right ureteroscopy, holmium laser lithotripsy, stone basketing, stent removal Implants: None Anesthesia: JESUSA Surgeon: Alberto Maria Estimated Blood Loss (ml): 5 Pathology: other (Right ureteral, renal stone) Condition: stable Disposition: PACU Indications for Procedure: This is a 65-year-old male with history of a 1 cm right sided ureteral stone multiple nonobstructive renal stones, status post stent placement in September for acute kidney injury secondary to his obstructive stone. Surgical options for treatment of his stones were discussed with him. Discussed with him the option of ureteroscopy with holmium laser. Discussed with him the risk which includes but not limited to bleeding, infection, injury to the ureter. He understood all the risk and agreed to proceed with right-sided ureteroscopy, with holmium laser lithotripsy, stone basketing Operative Findings: Large stone in the right mid ureter, an additional stone within the mid calyx on the right Description of Procedure: Patient was brought to the operating room, general anesthesia was induced. He was prepped and draped in sterile fashion and placed in dorsal lithotomy position. Cystoscopy fitted with a 21-[place]or[place] sheath was inserted per urethra, cystoscopy was performed which showed no abnormality within the bladder. The stent was visualized protruding from the ureteral orifice which was grasped and removed intact. Next a semirigid ureteroscope was inserted per urethra and advanced up the right ureteral orifice, stone was encountered in the mid ureter which was fragmented using the holmium laser. Stone fragments were removed using the stone basket. At this time the ureteroscope was advanced up to the proximal ureter no additional stones were visualized, pullback ureteroscopy showed no sizable fragments or injury to the ureter. As the ureteroscope was withdrawn and a sensor wire was advanced through. Next a 1113 [place] access sheath was passed over the wire under fluoroscopy into the proximal ureter. Next the flexible ureteroscope was inserted through the access sheath and nay oscopy was performed showed a additional stone within the mid calyx, but no additional stones were visualized. Retrograde pyelogram was performed through the scope to ensure all the calyces were evaluated. Pullback ureteroscopy was performed showed no injury to the ureter or any sizable fragments. The bladder was emptied at the endo of the case. Patient tolerated the procedure well was taken to PACU in stable condition
[2020-10-14] MEDS ORDERED: HYDROmorphone 0.5 MG/0.5 ML SYRINGE IVP ONE (17:48)
[2020-10-14 18:13] VITALS: PULSE 88; RESP 17
[2020-10-14 18:35] VITALS: BP 187/81
--- NOTE | 2020-10-17 10:15 | FL ---
EXAMINATION TYPE: FL urography retrograde DATE OF EXAM: 10/14/2020 COMPARISON: NONE HISTORY: Fluoroscopy time TECHNIQUE: Fluoroscopy. FINDINGS: Fluoroscopic guidance was provided during procedure approximately 5 seconds. IMPRESSION: See above
== END 2020-10-14 18:50 | disposition home or self-care (01) ==
LOC: OR 13:05
PROVIDERS: ATTEND Urology
DX: N20.2 Calculus of kidney with calculus of ureter (principal); I25.10 Atherosclerotic heart disease of native coronary artery without angina pectoris; J44.9 Chronic obstructive pulmonary disease, unspecified; E11.9 Type 2 diabetes mellitus without complications; K21.9 Gastro-esophageal reflux disease without esophagitis; I10 Essential (primary) hypertension; Z87.01 Personal history of pneumonia (recurrent); G47.30 Sleep apnea, unspecified; H40.9 Unspecified glaucoma; Z86.010 Personal history of colon polyps; Z86.16 Personal history of COVID-19; R97.20 Elevated prostate specific antigen [PSA]; M13.80 Other specified arthritis, unspecified site; Z98.890 Other specified postprocedural states; Z80.1 Family history of malignant neoplasm of trachea, bronchus and lung; Z80.41 Family history of malignant neoplasm of ovary; Z83.3 Family history of diabetes mellitus; Z79.82 Long term (current) use of aspirin; Z79.899 Other long term (current) drug therapy; Z91.011 Allergy to milk products; Z88.5 Allergy status to narcotic agent; Z91.018 Allergy to other foods; Z91.048 Other nonmedicinal substance allergy status
CPT/HCPCS: 82365; 74420; 74018; 52356; C1769; J2250; J1100; J2710; J0690; J2405; J2001; J3010; J2370; J0330; J2704; J1170; Q9967

== ENCOUNTER → 2020-11-01 | Outpatient (CLI) | payer MEDICARE ==
--- NOTE | 2020-11-01 09:44 | US ---
EXAMINATION TYPE: US prostate transrectal DATE OF EXAM: 11/01/2020 COMPARISON: NONE CLINICAL HISTORY: R97.20 elevated psa. PSA increased in 2 years, recent kidney stone, no urinary symp toms per patient This examination was performed using the transrectal probe. EXAM MEASUREMENTS: Gland Size: 4.7 x 5.2 x 4.3cm Volume: 55.6ml Predicted PSA: 6.6 Actual PSA (if available):3.2 2020, 1.6 in 2019 Heterogenous CZ with no focal anomaly seen within PZ IMPRESSION: Prostatic glandular hypertrophy without suspicious lesion. Predicted PSA = volume x 0.12 ng/ml Calculated Volume = 0.5236 x L x W x H
== END | disposition home or self-care (01) ==
LOC: RADUSWWP 06:53
PROVIDERS: ATTEND Family Medicine
DX: N40.0 Benign prostatic hyperplasia without lower urinary tract symptoms (principal); N20.0 Calculus of kidney
CPT/HCPCS: 76872

== ENCOUNTER → 2022-05-31 | Outpatient (CLI) | payer MEDICARE ==
--- NOTE | 2022-05-31 08:28 | US ---
EXAMINATION TYPE: US duplex aorta DATE OF EXAM: 05/31/2022 COMPARISON: NONE CLINICAL HISTORY: Z13.6 SCREENING FOR CARDIOVASCULAR DISORDERS. HTN controlled with meds. Previous smoker. TECHNIQUE: Multiple sonographic images of the abdominal aorta are obtained. FINDINGS: EXAM MEASUREMENTS: Abdominal Aorta: Proximal: 2.7 x 2.6 cm Mid: 2.1 x 2.3 cm Distal: 1.7 x 2.3 cm Bifurcation: Right- 1.2 x 1.1 cm Left- 1.1 x 1.3 cm SILK SPOTTER NOTES: Suboptimal exam due to patient body habitus and overlying bowel gas Aorta tapers normally to its visualized course. No AAA visualized at portions of Aorta seen IMPRESSION: 1. Abdominal aorta ultrasound screening negative for aneurysm.
== END | disposition home or self-care (01) ==
LOC: RADUSWWP 05-28 08:39
PROVIDERS: ATTEND Internal Medicine
DX: Z13.6 Encounter for screening for cardiovascular disorders (principal); I10 Essential (primary) hypertension; Z87.891 Personal history of nicotine dependence
CPT/HCPCS: 93979

== ENCOUNTER → 2023-04-01 | Outpatient (CLI) | payer MEDICARE ==
--- NOTE | 2023-05-04 02:11 | EM ---
EVENT MONITOR The patient was monitored between April 09 and April 28, 2023. The rhythm strip revealed a sinus mechanism with single PACs. No episodes of atrial fibrillation were noted. No significant pauses were noted. DARIA / JACINTON: [id number] /
== END | disposition home or self-care (01) ==
LOC: RADECHMAIN 07:57
PROVIDERS: ATTEND Psychiatry & Neurology Neurology
DX: I49.9 Cardiac arrhythmia, unspecified (principal)
CPT/HCPCS: 93270

== ENCOUNTER 2023-06-04 08:16 | Day surgery (SDC) | payer MEDICARE ==
[2023-05-30 11:25] VITALS: BMI 32.0
[~2023-06-04 08:16] MED LIST changes: -DEXAMETHASONE SOD PHOSPHATE 4 MG/ML 1 ML VIAL IV ONE; +LIDOCAINE 1% (10MG/ML) FOR IV START INTRADERMA PRN; -MIDAZOLAM 2 MG/2 ML VIAL IV PRN; -ONDANSETRON 4 MG/2 ML VIAL IVP ONE; +ONDANSETRON 4 MG/2 ML VIAL IVP PRN; -fentaNYL (PF) 50 MCG/ML 2 ML AMP IV PRN
[2023-06-04 08:42] VITALS: TEMP 96.9
[2023-06-04] MEDS ORDERED: ONDANSETRON 4 MG/2 ML VIAL IVP ONE (08:50)
[2023-06-04 09:00] LABS: Glucose,Whole Blood 133 mg/dL (70-110)
[2023-06-04] MEDS ORDERED: PROPOFOL 10 MG/ML 20 ML VIAL IV ONE (09:20)
[2023-06-04] MEDS ORDERED: LIDOCAINE 1% INJ 10MG/ML (20 ML MDV) ONE (09:20)
--- NOTE | 2023-06-04 09:47 | P.PCN ---
Date of Procedure: 06/04/23 Procedure(s) Performed: BRIEF HISTORY: Patient is a 67-year-old pleasant white male scheduled for an elective colonoscopy as a part of screening for colon cancer. PROCEDURE PERFORMED: Colonoscopy with snare polypectomy. PREOPERATIVE DIAGNOSIS: Screening for colon cancer. IV sedation per Anesthesia. PROCEDURE: After informed consent was obtained, the patient, was brought into the endoscopy unit. IV sedation was administered by Anesthesia under continuous monitoring. Digital rectal examination was normal. Initially the Olympus CF-160 flexible video colonoscope was then inserted in the rectum, gradually advanced into the cecum without any difficulty. Careful examination was performed as the scope was gradually being withdrawn. Ileocecal valve and the appendiceal orifice were visualized and appeared normal. Prep was excellent. Mucosa of the cecum, ascending colon Appeared normal. In the hepatic flexure there were 2 polyps measuring 5 mm and 8 mm in size both of which were removed by snare polypectomy. Rest of the, transverse colon, descending colon, sigmoid colon, and rectum appeared normal. There was a 4 mm sigmoid polyp removed by cold snare polypectomy. Retroflexion was performed in the rectum and no lesions were seen. The patient tolerated the procedure well. IMPRESSION: 5 mm and 8 mm hepatic flexure polyp status post polypectomy 4 mm; sigmoid polyp status post polypectomy RECOMMENDATIONS: Findings of this examination were discussed with the patient as well as his family. He was advised to follow with the biopsy results. If the biopsy results adenoma he can have a repeat colonoscopy in 3 years..
[2023-06-04 10:12] LABS: Glucose,Whole Blood 112 mg/dL (70-110)
[2023-06-04 11:14] VITALS: BP 131/66; PULSE 88; RESP 20
== END 2023-06-04 10:40 | disposition home or self-care (01) ==
LOC: ORWHC2ENDO 08:16
PROVIDERS: ATTEND Internal Medicine Gastroenterology
DX: Z12.11 Encounter for screening for malignant neoplasm of colon (principal); D12.3 Benign neoplasm of transverse colon; D12.5 Benign neoplasm of sigmoid colon; I25.10 Atherosclerotic heart disease of native coronary artery without angina pectoris; I10 Essential (primary) hypertension; G47.33 Obstructive sleep apnea (adult) (pediatric); J44.9 Chronic obstructive pulmonary disease, unspecified; M19.90 Unspecified osteoarthritis, unspecified site; Z88.5 Allergy status to narcotic agent; Z87.891 Personal history of nicotine dependence; Z79.51 Long term (current) use of inhaled steroids; Z79.899 Other long term (current) drug therapy; Z98.890 Other specified postprocedural states
CPT/HCPCS: 88305; 45385; J2405; J2001; J2704

== ENCOUNTER 2023-06-04 15:54 | Emergency (ER) | payer MEDICARE ==
[2023-06-04 16:19] VITALS: TEMP 98
--- NOTE | 2023-06-04 16:38 | XR ---
EXAMINATION TYPE: XR chest 1V portable DATE OF EXAM: 06/04/2023 4:34 PM CLINICAL INDICATION:Male, 67 years old with history of lesley; COMPARISON: Chest radiographs from 07/29/2019. TECHNIQUE: XR chest 1V portable Frontal view of the chest. FINDINGS: Lungs/Pleura: There is no evidence of pleural effusion, focal consolidation, or pneumothorax. Pulmonary vascularity: Unremarkable. Heart/mediastinum: Cardiomediastinal silhouette is unremarkable. Musculoskeletal: No acute osseous pathology. Other findings: None IMPRESSION: No acute cardiopulmonary disease/process.
[2023-06-04] MEDS ORDERED: IPRATROPIUM-ALBUTEROL 3 ML NEB INHALATION STA ×2 (16:43→16:44)
[2023-06-04 17:06] LABS: Basophils # (A) 0.1 k/uL (0-0.2); Basophils % (A) 1 %; Eosinophils # (A) 0.1 k/uL (0-0.7); Eosinophils % (A) 1 %; HCT 42.6 % (39.0-53.0); HGB 14.6 gm/dL (13.0-17.5); Lymphocytes # (A) 2.1 k/uL (1.0-4.8); Lymphocytes % (A) 25 %; MCH 30.6 pg (25.0-35.0); MCHC 34.2 g/dL (31.0-37.0); MCV 89.2 fL (80.0-100.0); Mean Platelet Volume 8.5; Monocytes # (A) 0.6 k/uL (0-1.0); Monocytes % (A) 7 %; Neutrophils # (A) 5.6 k/uL (1.3-7.7); Neutrophils % (A) 66 %; Platelet Count 277 k/uL (150-450); RBC 4.77 m/uL (4.30-5.90); RDW 12.9 % (11.5-15.5); WBC 8.5 k/uL (3.8-10.6)
--- NOTE | 2023-06-04 17:09 | ED ---
General Adult HPI - General Chief complaint: Shortness of Breath Stated complaint: SOB,colonoscopy today Time Seen by Provider: 06/04/23 16:17 Source: patient, RN notes reviewed, old records reviewed Mode of arrival: ambulatory Limitations: no limitations - History of Present Illness Initial comments: 67-year-old male presenting with cough, nasal congestion. Patient's cough is productive. Is began today. Patient states he had a colonoscopy earlier in the day and has had symptoms since. He denies fever. Denies central chest pain. Denies lower extremity pain or swelling. He states he has history of COPD. - Related Data Home Medications Medication Instructions Recorded Confirmed hydroCHLOROthiazide 12.5 mg PO DAILY 10/12/20 06/04/23 Atorvastatin [Lipitor] 20 mg PO DAILY 05/30/23 06/04/23 Clopidogrel [Plavix] 75 mg PO DAILY 05/30/23 06/04/23 FLUoxetine HCL 40 mg PO DAILY 05/30/23 06/04/23 Metoprolol Tartrate [Lopressor] 50 mg PO BID 05/30/23 06/04/23 Semaglutide [Ozempic] 2 mg SQ MO 05/30/23 06/04/23 Ascorbic Acid [Vitamin C] 500 mg PO DAILY 06/04/23 06/04/23 Brimonidine Tartrate [Alphagan P 1 drop LEFT EYE BID 06/04/23 06/04/23 0.2% Ophth Soln] Calcium Carbonate [Calcium] 600 mg PO DAILY 06/04/23 06/04/23 Cholecalciferol [Vitamin D3 (25 50 mcg PO DAILY 06/04/23 06/04/23 Mcg = 1000 Iu)] Cyanocobalamin (Vitamin B-12) 1,000 mcg PO DAILY 06/04/23 06/04/23 [Vitamin B-12] Dorzolamide-Timol 2.23%/0.68% 1 drop LEFT EYE BID 06/04/23 06/04/23 [Cosopt] Flaxseed Oil 1000mg 1 cap PO DAILY 06/04/23 06/04/23 Glucosam/Félix-Msm1/C/Charlie/Bosw 1 tab PO DAILY 06/04/23 06/04/23 [Spkjyzhzzkk-Euvswhkpakt-TWT Tb] Latanoprost [Latanoprost 0.005%] 1 drop LEFT EYE HS 06/04/23 06/04/23 Losartan Potassium 50 mg PO BID 06/04/23 06/04/23 Magnesium 200 mg PO DAILY 06/04/23 06/04/23 Multivit-Min/FA/Lycopen/Lutein 1 tab PO DAILY 06/04/23 06/04/23 [Centrum Silver Tablet] Turmeric Root Extract [Turmeric] 500 mg PO DAILY 06/04/23 06/04/23 Previous Rx's Medication Instructions Recorded Albuterol Inhaler [Ventolin Hfa 1 - 2 puff INHALATION Q4HR PRN #1 06/04/23 Inhaler] each Azithromycin [Zithromax Z Pack] 1 tab PO DIRECTED #6 tab 06/04/23 predniSONE 50 mg PO DAILY 4 Days #4 tab 06/04/23 Allergies Allergy/AdvReac Type Severity Reaction Status Date / Time apple Allergy Unknown Verified 06/04/23 17:43 broccoli Allergy Unknown Verified 06/04/23 17:43 cat dander Allergy Unknown Verified 06/04/23 17:43 Milk Containing Products Allergy Unknown Verified 06/04/23 17:43 (Dairy) [Dairy] wheat Allergy Unknown Verified 06/04/23 17:43 codeine AdvReac AGITATION Verified 06/04/23 17:43 Review of Systems ROS Statement: Those systems with pertinent positive or pertinent negative responses have been documented in the HPI. ROS Other: All systems not noted in ROS Statement are negative. Past Medical History Past Medical History: Coronary Artery Disease (CAD), COPD, Diabetes Mellitus, Eye Disorder, GERD/Reflux, Hypertension, Osteoarthritis (OA), Pneumonia, Sleep Apnea/CPAP/BIPAP Additional Past Medical History / Comment(s): glaucoma, hx colon polyps, Positive COVID 07/2019 w/ pneumonia. Hx elevated PSA. Uses cpap. Hx UTI; Rt ureteral kidney stone History of Any Multi-Drug Resistant Organisms: None Reported Past Surgical History: Heart Catheterization Additional Past Surgical History / Comment(s): colonoscopies, vocal cord polyp removed, pilonidal cyst removed, cysto w/ ureteral stent 10/01/20, abdulaziz. cataract removal, procedures for glaucoma Past Anesthesia/Blood Transfusion Reactions: No Reported Reaction Past Psychological History: No Psychological Hx Reported Smoking Status: Former smoker Past Alcohol Use History: Occasional Past Drug Use History: None Reported - Past Family History Father History Unknown: Yes Family Medical History: Cancer Additional Family Medical History / Comment(s): of lung cancer Mother History Unknown: Yes Family Medical History: Cancer, Diabetes Mellitus Additional Family Medical History / Comment(s): ovarian cancer; due to diabetic complications General Exam Limitations: no limitations General appearance: alert, in no apparent distress Head exam: Present: atraumatic, normocephalic Eye exam: Present: normal appearance, PERRL ENT exam: Present: other (Nasal congestion) Respiratory exam: Present: wheezes, rhonchi. Absent: respiratory distress Cardiovascular Exam: Present: regular rate, normal rhythm GI/Abdominal exam: Present: soft. Absent: distended, tenderness, guarding Extremities exam: Present: normal inspection Neurological exam: Present: alert, oriented X3 Psychiatric exam: Present: normal affect, normal mood Skin exam: Present: warm, dry, intact. Absent: cyanosis, diaphoretic Course Vital Signs 06/04/23 06/04/23 06/04/23 16:12 16:38 17:54 Temperature 98 F Pulse Rate 87 94 Respiratory 129 H 20 Rate Blood Pressure 129/78 O2 Sat by Pulse 92 L Oximetry Medical Decision Making - Medical Decision Making Was pt. sent in by a medical professional or institution (, PA, DYE BLENDER, urgent care, hospital, or [place] health care facility...) When possible be specific @ -No Did you speak to anyone other than the patient for history (EMS, parent, family, police, friend...)? What history was obtained from this source @ -No Did you review nursing and triage notes (agree or disagree)? Why? @ -I reviewed and agree with nursing and triage notes Were old charts reviewed (outside hosp., previous admission, EMS record, old EKG, old radiological studies, urgent care reports/EKG's, [place] health care facility records)? Report findings @ -No old charts were reviewed Differential Diagnosis (chest pain, altered mental status, abdominal pain women, abdominal pain men, vaginal bleeding, weakness, fever, dyspnea, syncope, headache, dizziness, GI bleed, back pain, seizure, CVA, palpatations, mental health, musculoskeletal)? @ -Differential Dyspnea: Coronary syndrome, arrhythmia, tamponade, asthma, COPD, pulmonary embolism, pneumonia, pneumothorax, pulmonary effusion, anaphylaxis, diabetic ketoacidosis, flailed chest, pulmonary contusion, diaphragmatic rupture, anemia, neuromuscular, this is not meant to be an all-inclusive list. EKG interpreted by me (3pts min.). @ -As above X-rays interpreted by me (1pt min.). @ -Chest x-ray negative for focal pneumonia CT interpreted by me (1pt min.). @ -None done U/S interpreted by me (1pt. min.). @ -None done What testing was considered but not performed or refused? (CT, X-rays, U/S, labs )? Why? @ -None What meds were considered but not given or refused? Why? @ -None Did you discuss the management of the patient with other professionals (professionals i.e. Dr., PA, DYE BLENDER, lab, RT, psych nurse, social work assistant, global position system technician, teacher, tax revenue officer, family independence case manager)? Give summary @ -No Was smoking cessation discussed for >3mins.? @ -No Was critical care preformed (if so, how long)? @ -No Were there social determinants of health that impacted care today? How? (Homelessness, low income, unemployed, alcoholism, drug addiction, transportation, low edu. Level, literacy, decrease access to med. care, group home, rehab)? @ -No Was there de-escalation of care discussed even if they declined (Discuss DNR or withdrawal of care, Hospice)? DNR status @ -No What co-morbidities impacted this encounter? (DM, HTN, Smoking, COPD, CAD, Cancer, CVA, ARF, Chemo, Hep., AIDS, mental health diagnosis, sleep apnea, morbid obesity)? @COPD Was patient admitted / discharged? Hospital course, mention meds given and route, prescriptions, significant lab abnormalities, going to OR and other pertinent info. @ -67-year-old male presenting with productive cough, mild dyspnea symptoms have been present today. He has normal white blood cell count, normal CMP, negative viral panel. After steroids and nebulized albuterol and Atrovent the patient is feeling significantly better. Will discharge at this time with treatment of COPD exacerbation. Return parameters discussed. Undiagnosed new problem with uncertain prognosis? @ -No Drug Therapy requiring intensive monitoring for toxicity (Heparin, Nitro, Ins ulin, Cardizem)? @ -No Were any procedures done? @ -No Diagnosis/symptom? @ -[COPD exacerbation Acute, or Chronic, or Acute on Chronic? @ -Acute Uncomplicated (without systemic symptoms) or Complicated (systemic symptoms)? @ -Default Side effects of treatment? @ -No Exacerbation, Progression, or Severe Exacerbation? @ -No Poses a threat to life or bodily function? How? (Chest pain, USA, ID, pneumonia, PE, COPD, DKA, ARF, appy, cholecystitis, CVA, Diverticulitis, Homicidal, Suicidal, threat to staff... and all critical care pts) @ -Low risk at this time - Lab Data Result diagrams: 06/04/23 16:54 06/04/23 16:54 Lab Results 06/04/23 06/04/23 06/04/23 Range/Units 16:54 16:54 16:54 WBC 8.5 (3.8-10.6) k/uL RBC 4.77 (4.30-5.90) m/uL Hgb 14.6 (13.0-17.5) gm/dL Hct 42.6 (39.0-53.0) % MCV 89.2 (80.0-100.0) fL MCH 30.6 (25.0-35.0) pg MCHC 34.2 (31.0-37.0) g/dL RDW 12.9 (11.5-15.5) % Plt Count 277 (150-450) k/uL MPV 8.5 Neutrophils % 66 % Lymphocytes % 25 % Monocytes % 7 % Eosinophils % 1 % Basophils % 1 % Neutrophils # 5.6 (1.3-7.7) k/uL Lymphocytes # 2.1 (1.0-4.8) k/uL Monocytes # 0.6 (0-1.0) k/uL Eosinophils # 0.1 (0-0.7) k/uL Basophils # 0.1 (0-0.2) k/uL Sodium 136 L (137-145) mmol/L Potassium 3.9 (3.5-5.1) mmol/L Chloride 103 (98-107) mmol/L Carbon Dioxide 23 (22-30) mmol/L Anion Gap 10 mmol/L BUN 21 H (9-20) mg/dL Creatinine 1.39 H (0.66-1.25) mg/dL Est GFR (CKD-EPI)AfAm 60 (>60 ml/min/1.73 sqM) Est GFR (CKD-EPI)NonAf 52 (>60 ml/min/1.73 sqM) Glucose 114 H (74-99) mg/dL Calcium 9.2 (8.4-10.2) mg/dL Total Bilirubin 0.7 (0.2-1.3) mg/dL AST 26 (17-59) U/L ALT 21 (4-49) U/L Alkaline Phosphatase 70 (38-126) U/L Total Protein 7.2 (6.3-8.2) g/dL Albumin 4.3 (3.5-5.0) g/dL Influenza Type A (PCR) Not Detected (Not Detectd) Influenza Type B (PCR) Not Detected (Not Detectd) RSV (PCR) Not Detected (Not Detectd) SARS-CoV-2 (PCR) Not Detected (Not Detectd) Disposition Clinical Impression: Acute exacerbation of chronic obstructive pulmonary disease Disposition: HOME SELF-CARE Condition: Fair Instructions (If sedation given, give patient instructions): COPD (Chronic Obstructive Pulmonary Disease) (ED) Prescriptions: predniSONE 50 mg PO DAILY 4 Days #4 tab Albuterol Inhaler [Ventolin Hfa Inhaler] 1 - 2 puff INHALATION Q4HR PRN #1 each PRN Reason: Shortness Of Breath Azithromycin [Zithromax Z Pack] 1 tab PO DIRECTED #6 tab Is patient prescribed a controlled substance at d/c from ED?: No Referrals: Leopoldo Du MD [Primary Care Provider] - 1-2 days Time of Disposition: 18:23
[2023-06-04] MEDS ORDERED: predniSONE 50 MG TAB PO STA (17:10)
[2023-06-04 17:16] LABS: ALT 21 U/L (4-49); AST 26 U/L (17-59); African American GFR (CKD) 60 (>60 ml/min/1.73 sqM); Albumin 4.3 g/dL (3.5-5.0); Alkaline Phosphatase 70 U/L (38-126); Anion Gap 10 mmol/L; Blood Urea Nitrogen 21 mg/dL (9-20); Calcium 9.2 mg/dL (8.4-10.2); Carbon Dioxide 23 mmol/L (22-30); Chloride 103 mmol/L (98-107); Glucose 114 mg/dL (74-99); Non-African American GFR(CKD) 52 (>60 ml/min/1.73 sqM); Potassium 3.9 mmol/L (3.5-5.1); Sodium 136 mmol/L (137-145); Total Bilirubin 0.7 mg/dL (0.2-1.3); Total Protein 7.2 g/dL (6.3-8.2)
[2023-06-04 18:58] VITALS: BP 116/82; PULSE 87; RESP 16
== END 2023-06-04 18:37 | disposition home or self-care (01) ==
LOC: EC 15:54
DX: J44.1 Chronic obstructive pulmonary disease with (acute) exacerbation (principal); I10 Essential (primary) hypertension; G47.30 Sleep apnea, unspecified; E11.9 Type 2 diabetes mellitus without complications; I25.10 Atherosclerotic heart disease of native coronary artery without angina pectoris; K21.9 Gastro-esophageal reflux disease without esophagitis; M19.90 Unspecified osteoarthritis, unspecified site; Z79.02 Long term (current) use of antithrombotics/antiplatelets; Z79.899 Other long term (current) drug therapy; Z87.891 Personal history of nicotine dependence; Z88.5 Allergy status to narcotic agent; Z91.011 Allergy to milk products; Z91.018 Allergy to other foods; Z86.16 Personal history of COVID-19; Z20.822 Contact with and (suspected) exposure to COVID-19
CPT/HCPCS: 99285 ×2; 36415; 94640; 80053; 85025; 87636; 71045; J7512

== ENCOUNTER → 2024-08-15 | Outpatient (CLI) | payer MEDICARE ==
--- NOTE | 2024-08-16 10:14 | MR ---
EXAMINATION TYPE: MR Prostate wo/w con DATE OF EXAM: 08/15/2024 9:29 AM COMPARISON: None. CLINICAL INDICATION: Male, 69 years old with history of R97.20 Elevated PSA; Elevated PSA TECHNIQUE: Multi-planar, multi-sequence imaging of the pelvis is performed prior to and following the uncomplicated administration of bolus intravenous gadolinium. IV Contrast: 10 mL Gadobutrol Interpretive Criteria: PI-RADS v2.1 SERUM PSA: 06/2024=7.0 05/2024=5.1 SURGICAL PATHOLOGY: No data available. FINDINGS: Prostatic dimensions: 5.9 x 2.5 x 4.0 cm. "Bullet" Volume:54.06 (PSA density=0.13 ng/mL/mL) CENTRAL GLAND (Central and Transition Zones/CZ+TZ): Multiple bilateral, heterogenous appearing hypertrophic stromal nodules, without suspicious lesion. M edian lobe hypertrophy with protrusion into the base of the bladder. (PI-RADS 2) PERIPHERAL ZONE (PZ): Bilateral linear, indistinct wedgelike areas of low ADC, and low T2 signal, No evidence of masslike a bnormality, or localized perfusional hypervascularity, to further suggest a focus of clinically signi ficant prostate cancer. (PI-RADS 2) SEMINAL VESICLES (SV): Symmetric and unremarkable. PERIPROSTATIC TISSUES: Unremarkable. LYMPH NODES: No enlarged pelvic lymph node. REMAINING PELVIS: Bladder wall is within normal limits given distention. No abnormal free or organized intrapelvic fluid collection. No pathologic bowel dilation or mural thickening. No hernia visualized OSSEOUS STRUCTURES: No suspicious osseous abnormality. IMPRESSION: 1. No specific features for high-risk prostate cancer. Maximum PI-RADS score: 2. 2. Moderate BPH, estimated gland volume 54.06 (PSA density=0.13 ng/mL/mL) 3. No suspicious osseous lesion. No lymphadenopathy. No evidence of prostate adenocarcinoma involving the periprostatic tissues. [facility], , 08/16/2024 10:11 AM
== END | disposition home or self-care (01) ==
LOC: RADMRIMAIN 08:26
PROVIDERS: ATTEND Urology
DX: N40.0 Benign prostatic hyperplasia without lower urinary tract symptoms (principal); R97.20 Elevated prostate specific antigen [PSA]
CPT/HCPCS: 72197; A9585